=== PATIENT | female | born 1995 | race Caucasian/White ===

== ENCOUNTER 2018-02-12 | Emergency (ER) | payer OTHER, SELFPAY ==
--- NOTE | 2018-02-12 10:47 | ER ---
Nurse's Notes [facility] Name: Jennifer Mclaughlin Age: 22 yrs Sex: Female : 1995 Arrival Date: 02/12/2018 Time: 10:37 Bed Waiting Private MD: Diagnosis: Unspecified otitis externa, left ear Presentation: 02/12 10:43 Presenting complaint: Patient states: ear pain, drainage and swelling to L ear x 3 ss days. Denies fever. Transition of care: patient was not received from another setting of care. Onset of symptoms was February 09, 2018. Care prior to arrival: None. 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 - Social history:: Smoking status: . Screenin:47 Abuse screen: Denies threats or abuse. Denies injuries from another. Nutritional ss screening: No deficits noted. Tuberculosis screening: Never had TB. Fall Risk None identified. Assessment: 10:47 General: Appears in no apparent distress. comfortable, Behavior is calm, cooperative. ss General: Denies fever, feeling ill. Pain: Complains of pain in left ear Pain currently is 3 out of 10 on a pain scale. Quality of pain is described as aching, Is. Neuro: Level of Consciousness is awake, alert, obeys commands. Cardiovascular: Capillary refill < 3 seconds is brisk in bilateral Patient's skin is warm and dry. Respiratory: Airway is patent Respiratory effort is even, unlabored, Respiratory pattern is regular, symmetrical. GI: Patient currently denies diarrhea, nausea, vomiting. EENT: Oral mucosa is moist. Derm: Skin is intact, is healthy with good turgor, Skin is pink, warm \T\ dry. normal. Vital Signs: 10:45 BP 114 / 56; Pulse 75; Resp 16; Temp 98.4(O); Pulse Ox 98% on R/A; Weight 74.39 kg; ss Height 5 ft. 3 in. (160.02 cm); Pain 3/10; 10:45 Body Mass Index 29.05 (74.39 kg, 160.02 cm) ss ED Course: 10:37 Patient arrived in ED. as 10:44 Triage completed. ss 10:45 Arm band placed on right wrist. ss 10:46 Tressa Flowers FNP-C is [facility]. kb 10:46 Andreas Solares MD is Attending Physician. kb 10:47 Patient has correct armband on for positive identification. Bed in low position. Call ss light in reach. 10:50 No provider procedures requiring assistance completed. Patient did not have IV access ss during this emergency room visit. Administered Medications: No medications were administered Outcome: 10:46 Discharge ordered by . kb 10:50 Discharged to home ambulatory. ss 10:50 Condition: good 10:50 Discharge instructions given to patient, Instructed on discharge instructions, follow up and referral plans. medication usage, Demonstrated understanding of instructions, follow-up care, medications, Prescriptions given X 1. 10:52 Patient left the ED. ss Signatures: Tressa Flowers FNP-C FNP-Cynthia Medrano Shelby, RN RN ss
--- NOTE | 2018-02-12 10:47 | EDPHYS ---
Physician Documentation [facility] Name: Jennifer Mclaughlin Age: 22 yrs Sex: Female : 1995 Arrival Date: 02/12/2018 Time: 10:37 Bed Waiting Private MD: ED Physician Andreas Solares HPI: 02/12 10:55 This 22 yrs old Female presents to ER via Ambulatory with complaints of Ear kb Pain. 10:55 The patient presents with drainage, that is purulent, pain, moderate, tenderness. The kb complaints affect the left ear. Onset: The symptoms/episode began/occurred 3 day(s) ago. Modifying factors: The symptoms are alleviated by nothing, the symptoms are aggravated by pulling on ears. Associated signs and symptoms: The patient has no apparent associated signs or symptoms. Severity of symptoms: At their worst the symptoms were mild moderate in the emergency department the symptoms are unchanged. The patient has not experienced similar symptoms in the past. The patient has not recently seen a physician. 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 - Social history:: Smoking status: . ROS: 10:55 Constitutional: Negative for fever, chills, and weight loss, Cardiovascular: Negative kb for chest pain, palpitations, and edema, Respiratory: Negative for shortness of breath, cough, wheezing, and pleuritic chest pain, Abdomen/GI: Negative for abdominal pain, nausea, vomiting, diarrhea, and constipation, MS/Extremity: Negative for injury and deformity, Skin: Negative for injury, rash, and discoloration, Neuro: Negative for headache, weakness, numbness, tingling, and seizure. 10:55 ENT: Positive for drainage from ear(s), ear pain. Exam: 10:55 Constitutional: This is a well developed, well nourished patient who is awake, alert, kb and in no acute distress. Head/Face: Normocephalic, atraumatic. Chest/axilla: Normal chest wall appearance and motion. Nontender with no deformity. No lesions are appreciated. Cardiovascular: Regular rate and rhythm with a normal S1 and S2. No gallops, murmurs, or rubs. Normal PMI, no JVD. No pulse deficits. Respiratory: Lungs have equal breath sounds bilaterally, clear to auscultation and percussion. No rales, rhonchi or wheezes noted. No increased work of breathing, no retractions or nasal flaring. Abdomen/GI: Soft, non-tender, with normal bowel sounds. No distension or tympany. No guarding or rebound. No evidence of tenderness throughout. Skin: Warm, dry with normal turgor. Normal color with no rashes, no lesions, and no evidence of cellulitis. MS/ Extremity: Pulses equal, no cyanosis. Neurovascular intact. Full, normal range of motion. Neuro: Awake and alert, GCS 15, oriented to person, place, time, and situation. Cranial nerves II-XII grossly intact. Motor strength 5/5 in all extremities. Sensory grossly intact. Cerebellar exam normal. Normal gait. 10:55 ENT: External ear(s): are unremarkable, Ear canal(s): purulent discharge, that is minimal, in the left canal, swelling, that is moderate, of the left canal, TM's: are normal, Nose: is normal, Mouth: is normal, Posterior pharynx: is normal. Vital Signs: 10:45 BP 114 / 56; Pulse 75; Resp 16; Temp 98.4(O); Pulse Ox 98% on R/A; Weight 74.39 kg; ss Height 5 ft. 3 in. (160.02 cm); Pain 3/10; 10:45 Body Mass Index 29.05 (74.39 kg, 160.02 cm) ss MDM: 10:46 Patient medically screened. kb 10:55 Data reviewed: vital signs, nurses notes. Data interpreted: Pulse oximetry: on room air kb is 98 %. Interpretation: normal. Counseling: I had a detailed discussion with the patient and/or guardian regarding: the historical points, exam findings, and any diagnostic results supporting the discharge/admit diagnosis, the need for outpatient follow up, a family practitioner. Administered Medications: No medications were administered Disposition: 14:43 Co-signature as Attending Physician, Adnreas Solares MD. Disposition: 02/12/18 10:46 Discharged to Home. Impression: Unspecified otitis externa, left ear. - Condition is Stable. - Discharge Instructions: Otitis Externa, [id number], Ear Drops, Adult, [id number]. - Prescriptions for Cortisporin 3.5- 10,000-1 mg/mL-unit/mL-% Otic solution - instill 4 drop by OTIC route 4 times per day for 7 days; 1 bottle. - Medication Reconciliation Form, Thank You Letter, Antibiotic Education, Prescription Opioid Use form. - Follow up: Emergency Department; When: As needed; Reason: Worsening of condition. Follow up: Private Physician; When: 2 - 3 days; Reason: Recheck today's complaints, Continuance of care, Re-evaluation by your physician. Signatures: Tressa Flowers, DENG SHORT-Charu Barger, GUI RN ss Andreas Solares MD MD
== END 2018-02-12 10:52 | disposition home or self-care (01) ==
CPT/HCPCS: 99282

== ENCOUNTER 2018-08-31 21:26 | Emergency (ER) | payer SELFPAY ==
--- NOTE | 2018-08-31 22:38 | EDPHYS ---
Physician Documentation [facility] Name: Jennifer Mclaughlin Age: 23 yrs Sex: Female : 1995 Arrival Date: 08/31/2018 Time: 21:27 Bed 7 Private MD: ED Physician Andreas Solares HPI: 08/31 22:44 This 23 yrs old Female presents to ER via Ambulatory with complaints of Ear gs Pain, Boil. 22:44 This 23 yrs old Female presents to ER via Ambulatory with complaints of Ear gs Pain, Boil. 22:44 The patient presents with pain. The complaints affect the left ear. Onset: The gs symptoms/episode began/occurred 2 day(s) ago. Modifying factors: the symptoms are aggravated by touching. Associated signs and symptoms: Pertinent negatives: fever. Severity of symptoms: At their worst the symptoms were moderate in the emergency department the symptoms are unchanged. The patient has experienced similar episodes in the past, a few times. 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 - Social history:: Smoking status: Patient uses tobacco products, smokes one-half pack cigarettes per day, Patient uses alcohol, occasionally. Patient/guardian denies using street drugs. - Ebola Screening: : Patient negative for fever greater than or equal to 101.5 degrees Fahrenheit, and additional compatible Ebola Virus Disease symptoms Patient denies exposure to infectious person Patient denies travel to an Ebola-affected area in the 21 days before illness onset. ROS: 22:44 Skin: Positive for abscess, lower right buttock. gs 22:44 All other systems are negative. Exam: 22:44 Head/Face: Normocephalic, atraumatic. Eyes: Pupils equal round and reactive to light, gs extra-ocular motions intact. Lids and lashes normal. Conjunctiva and sclera are non-icteric and not injected. Cornea within normal limits. Periorbital areas with no swelling, redness, or edema. Neck: Trachea midline, no thyromegaly or masses palpated, and no cervical lymphadenopathy. Supple, full range of motion without nuchal rigidity, or vertebral point tenderness. No Meningismus. Chest/axilla: Normal chest wall appearance and motion. Nontender with no deformity. No lesions are appreciated. Cardiovascular: Regular rate and rhythm with a normal S1 and S2. No gallops, murmurs, or rubs. Normal PMI, no JVD. No pulse deficits. Respiratory: Lungs have equal breath sounds bilaterally, clear to auscultation and percussion. No rales, rhonchi or wheezes noted. No increased work of breathing, no retractions or nasal flaring. Abdomen/GI: Soft, non-tender, with normal bowel sounds. No distension or tympany. No guarding or rebound. No evidence of tenderness throughout. Back: No spinal tenderness. No costovertebral tenderness. Full range of motion. 22:44 MS/ Extremity: Pulses equal, no cyanosis. Neurovascular intact. Full, normal range of motion. Neuro: Awake and alert, GCS 15, oriented to person, place, time, and situation. Cranial nerves II-XII grossly intact. Motor strength 5/5 in all extremities. Sensory grossly intact. Cerebellar exam normal. Normal gait. 22:44 Constitutional: The patient appears alert, awake. 22:44 ENT: Ear canal(s): purulent discharge, that is minimal, in the left canal, swelling, of the left canal. 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 Vital Signs: 21:30 BP 114 / 78; Pulse 82; Resp 18; Temp 98.7(O); Pulse Ox 98% on R/A; Weight 75.3 kg (R); fc Height 5 ft. 3 in. (160.02 cm) (R); Pain 10/10; 22:26 BP 112 / 93; Pulse 78; Resp 18; Pulse Ox 100% on R/A; ak1 21:30 Body Mass Index 29.41 (75.30 kg, 160.02 cm) MDM: 22:17 Patient medically screened. 22:44 Differential diagnosis: otitis externa, buttock abscess. Data reviewed: vital signs, gs nurses notes. ED course: pt refused i and d wants abx and referral to surgery. Administered Medications: No medications were administered Disposition: 08/31/18 22:38 Discharged to Home. Impression: Acute actinic otitis externa, left ear, Cutaneous abscess of buttock. - Condition is Stable. - Discharge Instructions: Skin Abscess, Ear Drops, Adult. - Prescriptions for Ciprodex 0.3- 0.1 % Otic Drops, Suspension - instill 4 drop by OTIC route every 12 hours for 7 days , for ears ONLY; 1 Container. Doxycycline Hyclate 100 mg Oral Tablet - take 1 tablet by ORAL route every 12 hours; 20 tablet. - Medication Reconciliation Form, Thank You Letter, Antibiotic Education, Prescription Opioid Use form. - Follow up: Tk Kellogg MD; When: 2 - 3 days; Reason: Re-evaluation by your physician. Signatures: Judy Mejia RN RN Arpita Reza RN RN ak1 Andreas Solares MD MD gs Corrections: (The following items were deleted from the chart) 22:51 22:38 08/31/2018 22:38 Discharged to Home. Impression: Acute actinic otitis externa, ak1 left ear; Cutaneous abscess of buttock. Condition is Stable. Forms are Medication Reconciliation Form, Thank You Letter, Antibiotic Education, Prescription Opioid Use. Follow up: Tk Kellogg; When: 2 - 3 days; Reason: Re-evaluation by your physician. gs
--- NOTE | 2018-08-31 22:38 | ER ---
Nurse's Notes [facility] Name: Jennifer Mclaughlin Age: 23 yrs Sex: Female : 1995 Arrival Date: 08/31/2018 Time: 21:27 Bed 7 Private MD: Diagnosis: Acute actinic otitis externa, left ear;Cutaneous abscess of buttock Presentation: 08/31 21:30 Presenting complaint: Patient states: that she has pain to her left ear and a boil to fc her inner right butt cheek. Both started on Friday am. Transition of care: patient was not received from another setting of care. Onset of symptoms was August 30, 2018. Risk Assessment: Do you want to hurt yourself or someone else? Patient reports no desire to harm self or others. Initial Sepsis Screen: Does the patient meet any 2 criteria? No. Patient's initial sepsis screen is negative. Does the patient have a suspected source of infection? No. Patient's initial sepsis screen is negative. Care prior to arrival: None. 21:30 Method Of Arrival: Ambulatory 21:30 Acuity: ALINE 3 Triage Assessment: 22:22 General: Appears in no apparent distress. Behavior is calm, cooperative. Pain: ak1 Complains of pain in left ear. EENT: Reports pain in left ear. Neuro: No deficits noted. Cardiovascular: No deficits noted. Respiratory: No deficits noted. GI: No signs and/or symptoms were reported involving the gastrointestinal system. : No signs and/or symptoms were reported regarding the genitourinary system. Derm: Reports abscess to inner thigh, buttock area. Musculoskeletal: No signs and/or symptoms reported regarding the musculoskeletal system. 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 - Social history:: Smoking status: Patient uses tobacco products, smokes one-half pack cigarettes per day, Patient uses alcohol, occasionally. Patient/guardian denies using street drugs. - Ebola Screening: : Patient negative for fever greater than or equal to 101.5 degrees Fahrenheit, and additional compatible Ebola Virus Disease symptoms Patient denies exposure to infectious person Patient denies travel to an Ebola-affected area in the 21 days before illness onset. Screenin:51 Abuse screen: Denies threats or abuse. Nutritional screening: No deficits noted. Tuberculosis screening: No symptoms or risk factors identified. Fall Risk None identified. Assessment: 22:23 Reassessment: Patient appears in no apparent distress at this time. No changes from ak1 previously documented assessment. see triage assessment. Vital Signs: 21:30 BP 114 / 78; Pulse 82; Resp 18; Temp 98.7(O); Pulse Ox 98% on R/A; Weight 75.3 kg (R); fc Height 5 ft. 3 in. (160.02 cm) (R); Pain 10/10; 22:26 BP 112 / 93; Pulse 78; Resp 18; Pulse Ox 100% on R/A; ak1 21:30 Body Mass Index 29.41 (75.30 kg, 160.02 cm) ED Course: 21:27 Patient arrived in ED. as 21:30 Arm band placed on Patient placed in an exam room, on a stretcher. fc 21:35 Arpita Reza, RN is Primary Nurse. ak1 21:50 Triage completed. 21:51 Patient has correct armband on for positive identification. Placed in gown. Bed in low fc position. Call light in reach. 21:54 Andreas Solares MD is Attending Physician. gs 22:37 Tk Kellogg MD is Referral Physician. gs 22:38 chaperoned visual exam of abscess to right buttock. pt refused I\T\D. Patient did not ak1 have IV access during this emergency room visit. Administered Medications: No medications were administered Outcome: 22:38 Discharge ordered by . gs 22:39 Condition: stable ak1 22:50 Discharged to home ambulatory. ak1 22:50 Discharge instructions given to patient, Instructed on discharge instructions, follow up and referral plans. no drinking with medication, no driving heavy equipment, medication usage, safe sex practices, control, wound care, Demonstrated understanding of instructions, follow-up care, medications, wound care, Prescriptions given X 2. 22:51 Patient left the ED. ak1 Signatures: Judy Mejia RN RN Cynthia Kellogg Amber, RN RN ak Andreas Solares MD MD gs
== END 2018-08-31 22:51 | disposition home or self-care (01) ==
LOC: ER 21:26
DX: H60.512 Acute actinic otitis externa, left ear (principal); L02.31 Cutaneous abscess of buttock; F17.210 Nicotine dependence, cigarettes, uncomplicated; Z91.048 Other nonmedicinal substance allergy status
CPT/HCPCS: 99282

== ENCOUNTER 2019-01-11 01:50 | Emergency (ER) | payer SELFPAY ==
[2019-01-11 02:42] LABS: Urine Blood TRACE (NEG); Urine Glucose NEGATIVE (NEG); Urine Protein NEGATIVE (NEG); Urine pH 5.5 (5.0-7.0)
[2019-01-11 03:05] LABS: Urine Bacteria <20 /HPF (<20); Urine Culture Reflex Order NOT NEEDED; Urine RBC <5 /HPF (NONE SEEN)
[2019-01-11] MEDS ORDERED: KETOROLAC 30 MG/ML INJ ONE (03:25)
--- NOTE | 2019-01-11 03:25 | ER ---
Nurse's Notes [facility] Name: Jennifer Mclaughlin Age: 23 yrs Sex: Female : 1995 Arrival Date: 01/11/2019 Time: 01:56 Bed 20 Private MD: Diagnosis: Pelvic pressure Presentation: 01/11 02:09 Presenting complaint: Patient states: she is having vaginal discomfort which started bb today last week she had an episode where she had discharge similar to a "booger". Transition of care: patient was not received from another setting of care. Onset of symptoms was January 11, 2019. Risk Assessment: Do you want to hurt yourself or someone else? Patient reports no desire to harm self or others. Initial Sepsis Screen: Does the patient meet any 2 criteria? No. Patient's initial sepsis screen is negative. Does the patient have a suspected source of infection? No. Patient's initial sepsis screen is negative. Care prior to arrival: None. 02:09 Method Of Arrival: Ambulatory bb 02:09 Acuity: ALINE 4 bb Triage Assessment: 02:30 General: Appears in no apparent distress. comfortable, Behavior is calm, cooperative, cc3 appropriate for age. Pain: Complains of pain in vagina. EENT: No signs and/or symptoms were reported regarding the EENT system. Neuro: Level of Consciousness is awake, alert, obeys commands, Oriented to person, place, time, situation, Appropriate for age. Cardiovascular: Patient's skin is warm and dry. Respiratory: Airway is patent Respiratory effort is even, unlabored, Respiratory pattern is regular, symmetrical. GI: Abdomen is flat, non-distended. : No signs and/or symptoms were reported regarding the genitourinary system. Derm: No signs and/or symptoms reported regarding the dermatologic system. Musculoskeletal: Circulation, motion, and sensation intact. Range of motion: intact in all extremities. 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 - Social history:: Smoking status: Patient uses tobacco products, smokes one-half pack cigarettes per day, Patient uses alcohol, occasionally. Patient/guardian denies using street drugs. - Ebola Screening: : No symptoms or risks identified at this time. Screenin:29 Abuse screen: Denies threats or abuse. Denies injuries from another. Nutritional cc3 screening: No deficits noted. Tuberculosis screening: No symptoms or risk factors identified. Fall Risk Ambulatory Aid- None/Bed Rest/Nurse Assist (0 pts). Gait- Normal/Bed Rest/Wheelchair (0 pts) Mental Status- Oriented to own ability (0 pts). Assessment: 02:30 General: see triage assessment. cc3 03:18 Reassessment: Patient appears in no apparent distress at this time. Patient and/or cc3 family updated on plan of care and expected duration. Pain level reassessed. Patient is alert, oriented x 3, equal unlabored respirations, skin warm/dry/pink. 03:50 Reassessment: Patient appears in no apparent distress at this time. Patient and/or cc3 family updated on plan of care and expected duration. Pain level reassessed. Patient is alert, oriented x 3, equal unlabored respirations, skin warm/dry/pink. 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 Vital Signs: 02:12 BP 119 / 60; Pulse 84; Resp 16 S; Temp 98.3(O); Pulse Ox 99% on R/A; Weight 72.57 kg bb (R); Height 5 ft. 3 in. (160.02 cm) (R); Pain 4/10; 03:18 BP 114 / 67; Pulse 86; Resp 17 S; Pulse Ox 99% on R/A; cc3 02:12 Body Mass Index 28.34 (72.57 kg, 160.02 cm) ED Course: 01:56 Patient arrived in ED. es 02:01 [facility]ibel Villasenor [facility]C [facility]. snw 02:01 Regis Coreas MD is Attending Physician. snw 02:11 Triage completed. bb 02:12 Arm band placed on Patient placed in an exam room, on a stretcher, on pulse oximetry. bb 02:29 Addis Meier is Primary Nurse. cc3 02:30 Patient has correct armband on for positive identification. Bed in low position. Call cc3 light in reach. Side rails up X 1. Pulse ox on. NIBP on. 02:30 Straight cath inserted, using sterile technique, 16 Fr. Specimen obtained. Patient bb tolerated well. 03:50 No provider procedures requiring assistance completed. Patient did not have IV access cc3 during this emergency room visit. Administered Medications: 03:15 Drug: TORadol 60 mg Route: IM; Site: left gluteus; cc3 03:50 Follow up: Response: No adverse reaction; Pain is decreased cc3 Outcome: 03:24 Discharge ordered by MD. benjamin 03:50 Discharged to home ambulatory. cc3 03:50 Condition: stable 03:50 Discharge instructions given to patient, Instructed on discharge instructions, follow up and referral plans. medication usage, Demonstrated understanding of instructions, follow-up care, medications, Prescriptions given X 1. 04:02 Patient left the ED. cc3 Signatures: Maribel Villasenor, ASSISTANT SECRETARY-C ASSISTANT SECRETARY-Csnw Giselle Newberry Brenda, GUI RN bb Addis Meier cc3
--- NOTE | 2019-01-11 03:25 | EDPHYS ---
Physician Documentation [facility] Name: Jennifer Mclaughlin Age: 23 yrs Sex: Female : 1995 Arrival Date: 01/11/2019 Time: 01:56 Bed 20 Private MD: ED Physician Regis Coreas HPI: 01/11 02:15 This 23 yrs old Female presents to ER via Ambulatory with complaints of snw VAGINAL DISCOMFORT. 02:15 Onset: The symptoms/episode began/occurred suddenly, and became persistent. Associated snw signs and symptoms: Pertinent positives: dysuria. The patient has experienced a previous episode. The patient has not recently seen a physician. 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 - Social history:: Smoking status: Patient uses tobacco products, smokes one-half pack cigarettes per day, Patient uses alcohol, occasionally. Patient/guardian denies using street drugs. - Ebola Screening: : No symptoms or risks identified at this time. ROS: 02:08 Constitutional: Negative for fever, chills, and weight loss, Eyes: Negative for injury, snw pain, redness, and discharge, ENT: Negative for injury, pain, and discharge, Neck: Negative for injury, pain, and swelling, Cardiovascular: Negative for chest pain, palpitations, and edema, Respiratory: Negative for shortness of breath, cough, wheezing, and pleuritic chest pain, Abdomen/GI: Negative for abdominal pain, nausea, vomiting, diarrhea, and constipation, Back: Negative for injury and pain, MS/Extremity: Negative for injury and deformity, Skin: Negative for injury, rash, and discoloration, Neuro: Negative for headache, weakness, numbness, tingling, and seizure, Psych: Negative for depression, anxiety, suicide ideation, homicidal ideation, and hallucinations. 02:08 : Positive for urinary symptoms, pt states she feels the need to push with urination, noted that 2 weeks prior to her menses she had a large "bugger" discharge. . Exam: 02:13 Constitutional: This is a well developed, well nourished patient who is awake, alert, snw and in no acute distress. Head/Face: Normocephalic, atraumatic. Eyes: Pupils equal round and reactive to light, extra-ocular motions intact. Lids and lashes normal. Conjunctiva and sclera are non-icteric and not injected. Cornea within normal limits. Periorbital areas with no swelling, redness, or edema. ENT: Nares patent. No nasal discharge, no septal abnormalities noted. Tympanic membranes are normal and external auditory canals are clear. Oropharynx with no redness, swelling, or masses, exudates, or evidence of obstruction, uvula midline. Mucous membranes moist. Neck: Trachea midline, no thyromegaly or masses palpated, and no cervical lymphadenopathy. Supple, full range of motion without nuchal rigidity, or vertebral point tenderness. No Meningismus. Chest/axilla: Normal chest wall appearance and motion. Nontender with no deformity. No lesions are appreciated. Cardiovascular: Regular rate and rhythm with a normal S1 and S2. No gallops, murmurs, or rubs. Normal PMI, no JVD. No pulse deficits. Respiratory: Lungs have equal breath sounds bilaterally, clear to auscultation and percussion. No rales, rhonchi or wheezes noted. No increased work of breathing, no retractions or nasal flaring. Abdomen/GI: Soft, non-tender, with normal bowel sounds. No distension or tympany. No guarding or rebound. No evidence of tenderness throughout. Back: No spinal tenderness. No costovertebral tenderness. Full range of motion. Pelvic Exam: Normal external genitalia. Pt on menses, + blood but no noted odor or discharge. will obtain cath urine Skin: Warm, dry with normal turgor. Normal color with no rashes, no lesions, and no evidence of cellulitis. MS/ Extremity: Pulses equal, no cyanosis. Neurovascular intact. Full, normal range of motion. Neuro: Awake and alert, GCS 15, oriented to person, place, time, and situation. Cranial nerves II-XII grossly intact. Motor strength 5/5 in all extremities. Sensory grossly intact. Cerebellar exam normal. Normal gait. Psych: Awake, alert, with orientation to person, place and time. Behavior, mood, and affect are within normal limits. Vital Signs: 02:12 BP 119 / 60; Pulse 84; Resp 16 S; Temp 98.3(O); Pulse Ox 99% on R/A; Weight 72.57 kg bb (R); Height 5 ft. 3 in. (160.02 cm) (R); Pain 4/10; 03:18 BP 114 / 67; Pulse 86; Resp 17 S; Pulse Ox 99% on R/A; cc3 02:12 Body Mass Index 28.34 (72.57 kg, 160.02 cm) bb MDM: 02:01 Patient medically screened. snw 03:26 Data reviewed: vital signs, nurses notes. Data interpreted: Pulse oximetry: on room air snw is 99 %. Interpretation: normal. Counseling: I had a detailed discussion with the patient and/or guardian regarding: the historical points, exam findings, and any diagnostic results supporting the discharge/admit diagnosis, lab results, the need for outpatient follow up, to return to the emergency department if symptoms worsen or persist or if there are any questions or concerns that arise at home. Special discussion: Based on the history and exam findings, there is no indication for further emergent testing or inpatient evaluation. I discussed with the patient/guardian the need to see the OB Gyne specialist for further evaluation of the symptoms. I discussed with the patient/guardian the need to see the primary care provider for further evaluation of the symptoms. ED course: Pt notified of urine GC test. Pt to be called if + and treatment is warranted. She voices understanding of plan of care.. 01/11 02:08 Order name: Urine Culture snw 01/11 02:08 Order name: Urine Microscopic Only; Complete Time: 03:08 snw 01/11 02:37 Order name: GC (Douglas/Chl) Probe URINE EDMS 01/11 02:39 Order name: Urine Dipstick--Ancillary (enter results); Complete Time: 02:54 ar5 01/11 02:08 Order name: Cath; Complete Time: 02:30 snw 01/11 02:08 Order name: Urine Dipstick-Ancillary (obtain specimen); Complete Time: 02:30 snw Administered Medications: 03:15 Drug: TORadol 60 mg Route: IM; Site: left gluteus; cc3 03:50 Follow up: Response: No adverse reaction; Pain is decreased cc3 Disposition: 06:50 Co-signature as Attending Physician, Regis Coreas MD. rn Disposition: 01/11/19 03:24 Discharged to Home. Impression: Pelvic pressure. - Condition is Stable. - Discharge Instructions: Dysuria, Premenstrual Syndrome, Pelvic Rest. - Prescriptions for Diclofenac Sodium 75 mg Oral Tablet Sustained Release - take 1 tablet by ORAL route 2 times per day; 30 tablet. - Work release form, Medication Reconciliation Form, Thank You Letter, Antibiotic Education, Prescription Opioid Use form. - Follow up: Private Physician; When: 2 - 3 days; Reason: Recheck today's complaints, Continuance of care, Re-evaluation by your physician. Follow up: Emergency Department; When: As needed; Reason: Worsening of condition. Signatures: Dispatcher [employer] [facility] Maribel Villasenor, AUTOMOBILE RELOCATION ENGINEER-C AUTOMOBILE RELOCATION ENGINEER-Csnw Samanta Brito, RN Regis Oliver MD MD rn Cordel, Charlene cc3 Corrections: (The following items were deleted from the chart) 03:47 02:40 TEST, SERUM+SC.LAB.BRZ ordered. [facility] 04:02 03:24 01/11/2019 03:24 Discharged to Home. Impression: Pelvic pressure. Condition is cc3 Stable. Forms are Medication Reconciliation Form, Thank You Letter, Antibiotic Education, Prescription Opioid Use. Follow up: Private Physician; When: 2 - 3 days; Reason: Recheck today's complaints, Continuance of care, Re-evaluation by your physician. Follow up: Emergency Department; When: As needed; Reason: Worsening of condition. snw
== END 2019-01-11 04:02 | disposition home or self-care (01) ==
LOC: ER 01:50
DX: N94.89 Other specified conditions associated with female genital organs and menstrual cycle (principal); F17.210 Nicotine dependence, cigarettes, uncomplicated; Q82.8 Other specified congenital malformations of skin; Z88.8 Allergy status to other drugs, medicaments and biological substances
CPT/HCPCS: 51702; 81003; 81015; 87086; 87088; 87490; 87590; 96372; 99284

== ENCOUNTER 2019-04-23 09:45 | Emergency (ER) | payer SELFPAY ==
--- OUTSIDE RECORDS SUMMARY | 2019-04-23 09:46 | XMS REPORT ---
:1995 [facility] Address [address] [place] [address] Care Team Providers Name Role Phone Unavailable Unavailable Unavailable Problems This patient has no known problems. Allergies, Adverse Reactions, Alerts This patient has no known allergies or adverse reactions. Medications This patient has no known medications.
[2019-04-23] MEDS ORDERED: METHYLPREDNISOLONE 125 MG INJ ONE (10:08)
[2019-04-23] MEDS ORDERED: DIPHENHYDRAMINE 50 MG/ML VIAL ONE (10:09)
--- NOTE | 2019-04-23 10:59 | EDPHYS ---
Physician Documentation [facility] Name: Jennifer Mclaughlin Age: 23 yrs Sex: Female : 1995 Arrival Date: 04/23/2019 Time: 09:46 Bed 8 Private MD: ED Physician Regis Coreas HPI: 04/23 10:07 This 23 yrs old Female presents to ER via EMS with complaints of Allergy rn Symptoms. 10:07 The patient's rash thought to be caused by an unknown cause. The rash is located on the rn right leg and left leg. The rash can be described as erythematous, urticarial. Onset: The symptoms/episode began/occurred this morning. Associated signs and symptoms: Pertinent positives: swelling of left eye. Severity of symptoms: At their worst the symptoms were mild in the emergency department the symptoms are unchanged. The patient has not experienced similar symptoms in the past. REports woke up with swelling to left eye and rash to groin/legs, has chronic skin condition including crusty eyes and chronic drainage, but this rash and left eye swelling in new. Had shrimp last night, no new exposures, no new medication. No trouble breathing. No abd pain. Denies trauma.. EXERCISE SPECIALIST: 11:05 LMP N/A - . tw2 Historical: - Allergies: 10:04 Iodine; tw2 - PMHx: 10:04 chlamydia; Darier's Syndrome; Hernia; tw2 - PSHx: 10:04 None; tw2 - Immunization history:: Adult Immunizations. - Social history:: Smoking status: . - Ebola Screening: : Patient negative for fever greater than or equal to 101.5 degrees Fahrenheit, and additional compatible Ebola Virus Disease symptoms Patient denies travel to an Ebola-affected area in the 21 days before illness onset. - Family history:: not pertinent. - Hospitalizations: : No recent hospitalization is reported. ROS: 10:07 Constitutional: Negative for fever, chills, and weight loss, Eyes: + chronic eye rn drainage, + new left periorbital swelling. Cardiovascular: Negative for chest pain, palpitations, and edema, Respiratory: Negative for shortness of breath, cough, wheezing, and pleuritic chest pain, Abdomen/GI: Negative for abdominal pain, nausea, vomiting, diarrhea, and constipation, MS/Extremity: Negative for injury and deformity, Skin: + rash to groin/legs Neuro: Negative for headache, weakness, numbness, tingling, and seizure. Exam: 10:07 Constitutional: This is a well developed, well nourished patient who is awake, alert, rn and in no acute distress. Head/Face: Normocephalic, atraumatic. Eyes: + bilateral crusting of eyelids, no conjunctival erythema, + left edemtous periorbital region without rash. ENT: MMM, no oral swelling. No stridor. Respiratory: No increased work of breathing, no retractions or nasal flaring. Abdomen/GI: soft, non-tender Skin: Warm, dry, erythematous/urticarial lesions to groin and proximal thighs, a few spots on extensor surfaces of arms, no bullae or skin sloughing. MS/ Extremity: Pulses equal, no cyanosis. Neurovascular intact. Full, normal range of motion. Equal circumference. Neuro: Awake and alert, GCS 15, oriented to person, place, time, and situation. Cranial nerves II-XII grossly intact. Motor strength 5/5 in all extremities. Sensory grossly intact. Vital Signs: 09:48 BP 113 / 54; Pulse 78; Resp 18; Temp 97.9; Pulse Ox 99% on R/A; Weight 54.43 kg (R); tw2 Height 5 ft. 4 in. (162.56 cm); Pain 6/10; 09:48 Body Mass Index 20.60 (54.43 kg, 162.56 cm) tw2 MDM: 09:49 Patient medically screened. rn 10:57 Differential diagnosis: allergic reaction. Data reviewed: vital signs, nurses notes, rn and as a result, I will discharge patient. Counseling: I had a detailed discussion with the patient and/or guardian regarding: the historical points, exam findings, and any diagnostic results supporting the discharge/admit diagnosis, the need for outpatient follow up, to return to the emergency department if symptoms worsen or persist or if there are any questions or concerns that arise at home. Response to treatment: the patient's symptoms have mildly improved after treatment, and as a result, I will discharge patient. Special discussion: I discussed with the patient/guardian in detail that at this point there is no indication for admission to the hospital. It is understood, however, that if the symptoms persist or worsen the patient needs to return immediately for re-evaluation. Administered Medications: 10:03 Drug: SOLU-Medrol 125 mg Route: IM; Site: left gluteus; tw2 11:06 Follow up: Response: No adverse reaction tw2 10:05 Drug: Benadryl 50 mg Route: IM; Site: right gluteus; tw2 11:06 Follow up: Response: No adverse reaction tw2 Disposition: 04/23/19 10:58 Discharged to Home. Impression: Acute allergic reaction. - Condition is Stable. - Discharge Instructions: Allergies, Adult. - Prescriptions for Prednisone 20 mg Oral Tablet - take 3 tablet by ORAL route once daily for 5 days; 15 tablet. Erythromycin 5 mg/gram (0.5 %) Ophthalmic Ointment - apply 1 centimeter by OPHTHALMIC route 2-3 times daily for 7 days; 1 tube. - Medication Reconciliation Form, Thank You Letter, Antibiotic Education, Prescription Opioid Use form. - Follow up: Private Physician; When: As needed; Reason: Recheck today's complaints, Re-evaluation by your physician. - Problem is new. - Symptoms have improved. Signatures: Regis Coreas MD MD rn Wise, Tara, RN RN tw2 Corrections: (The following items were deleted from the chart) 11:06 10:58 04/23/2019 10:58 Discharged to Home. Impression: Acute allergic reaction. tw2 Condition is Stable. Forms are Medication Reconciliation Form, Thank You Letter, Antibiotic Education, Prescription Opioid Use. Follow up: Private Physician; When: As needed; Reason: Recheck today's complaints, Re-evaluation by your physician. Problem is new. Symptoms have improved. rn
--- NOTE | 2019-04-23 10:59 | ER ---
Nurse's Notes [facility] Name: Jennifer Mclaughlin Age: 23 yrs Sex: Female : 1995 Arrival Date: 04/23/2019 Time: 09:46 Bed 8 Private MD: Diagnosis: Acute allergic reaction Presentation: 04/23 09:46 Presenting complaint: EMS states: pt woke up this morning and states her eye was tw2 swollen, reports NKA, ate a shrimp dinner last night, vs stable, reports rash on thighs, hx: psoriasis. Transition of care: patient was not received from another setting of care. Onset: The symptoms/episode began/occurred this morning. Anaphylaxis evaluation, the patient reports or I have noted the following symptoms which indicate a significant risk of anaphylaxis: no signs or symptoms of anaphylaxis were noted. Onset of symptoms was April 23, 2019. Risk Assessment: Do you want to hurt yourself or someone else? Patient reports no desire to harm self or others. Initial Sepsis Screen: Does the patient meet any 2 criteria? No. Patient's initial sepsis screen is negative. Does the patient have a suspected source of infection? No. Patient's initial sepsis screen is negative. Care prior to arrival: None. 09:46 Method Of Arrival: EMS: [facility] tw2 09:46 Acuity: ALINE 4 tw2 Triage Assessment: 09:46 General: Appears in no apparent distress. slender, unkempt, Behavior is calm, tw2 cooperative, appropriate for age. Pain: Denies pain. EENT: Reports swelling and discharge from LEFT eye. Neuro: Level of Consciousness is awake, alert, obeys commands, Oriented to person, place, time, situation. Cardiovascular: Heart tones S1 S2 Patient's skin is warm and dry. Respiratory: Airway is patent Respiratory effort is even, unlabored, Respiratory pattern is regular, symmetrical, Breath sounds are clear bilaterally. GI: No signs and/or symptoms were reported involving the gastrointestinal system. : No signs and/or symptoms were reported regarding the genitourinary system. Derm: Reports rash to inner LEFT thigh. Musculoskeletal: Range of motion: intact in all extremities. EXTRUDER: 11:05 LMP N/A - . tw2 Historical: - Allergies: 10:04 Iodine; tw2 - PMHx: 10:04 chlamydia; Darier's Syndrome; Hernia; tw2 - PSHx: 10:04 None; tw2 - Immunization history:: Adult Immunizations. - Social history:: Smoking status: . - Ebola Screening: : Patient negative for fever greater than or equal to 101.5 degrees Fahrenheit, and additional compatible Ebola Virus Disease symptoms Patient denies travel to an Ebola-affected area in the 21 days before illness onset. - Family history:: not pertinent. - Hospitalizations: : No recent hospitalization is reported. Screenin:06 Abuse screen: Denies threats or abuse. Nutritional screening: No deficits noted. tw2 Tuberculosis screening: No symptoms or risk factors identified. Fall Risk None identified. Assessment: 10:05 Reassessment: see triage assessment. tw2 11:05 Reassessment: Patient appears in no apparent distress at this time. Patient and/or tw2 family updated on plan of care and expected duration. Pain level reassessed. Patient is alert, oriented x 3, equal unlabored respirations, skin warm/dry/pink. Patient states symptoms have improved. Vital Signs: 09:48 BP 113 / 54; Pulse 78; Resp 18; Temp 97.9; Pulse Ox 99% on R/A; Weight 54.43 kg (R); tw2 Height 5 ft. 4 in. (162.56 cm); Pain 6/10; 09:48 Body Mass Index 20.60 (54.43 kg, 162.56 cm) tw2 ED Course: 09:46 Patient arrived in ED. tw2 09:46 Arm band placed on. tw2 09:46 Bed in low position. Call light in reach. Pulse ox on. NIBP on. tw2 09:48 Triage completed. tw2 09:49 Regis Coreas MD is Attending Physician. rn 09:51 Pratibha Kay RN is Primary Nurse. tw2 11:03 No provider procedures requiring assistance completed. Patient did not have IV access tw2 during this emergency room visit. Administered Medications: 10:03 Drug: SOLU-Medrol 125 mg Route: IM; Site: left gluteus; tw2 11:06 Follow up: Response: No adverse reaction tw2 10:05 Drug: Benadryl 50 mg Route: IM; Site: right gluteus; tw2 11:06 Follow up: Response: No adverse reaction tw2 Outcome: 10:58 Discharge ordered by . rn 11:03 Discharged to home ambulatory. tw2 11:03 Condition: stable 11:03 Discharge instructions given to patient, Instructed on discharge instructions, follow up and referral plans. Demonstrated understanding of instructions, follow-up care, medications, Prescriptions given X 2. 11:06 Patient left the ED. tw2 Signatures: Regis Coreas MD MD rn Wise, Tara, RN RN tw2 Corrections: (The following items were deleted from the chart) 10:00 09:48 Pulse 78bpm; Resp 18bpm; Pulse Ox 99% RA; Temp 97.9F; 54.43 kg Reported; Height 5 tw2 ft. 4 in.; BMI: 20.6; Pain 6/10; tw2 10:09 09:46 Acuity: ALINE 3 tw2 tw2 10:10 10:09 Acuity: ALINE 4 tw2 tw2
== END 2019-04-23 11:06 | disposition home or self-care (01) ==
LOC: ER 09:45
DX: R21 Rash and other nonspecific skin eruption (principal); T78.40XA Allergy, unspecified, initial encounter
CPT/HCPCS: 96372; 99284; J2930

== ENCOUNTER 2020-08-12 17:30 | Emergency (ER) | payer SELFPAY ==
--- OUTSIDE RECORDS SUMMARY | 2020-08-12 17:32 | XMS REPORT | Continuity of Care Document ---
:1995 Author Organization [facility] t Address [address] [place] [address] Care Team Providers Name Role Phone Jaime Miller Attending Clinician Problems This patient has no known problems. Allergies, Adverse Reactions, Alerts This patient has no known allergies or adverse reactions. Medications This patient has no known medications. Procedures This patient has no known procedures. Encounters Start End Encounter Admission Attending Care Care Encounter Source Date/Time Date/Time Type Type Clinicians Facility Department ID 2020-05-01 2020-05-01 Office TARYN Christianson [id number] 13:21:30 15:26:15 Visit Yara Sandoval GLASS CUTTING MACHINE FEEDER [id number] [facility] [id number] MATERNAL [id number] & CHILD [address] [place] [address] Results This patient has no known results.
--- NOTE | 2020-08-12 19:15 | ER ---
Nurse's Notes [facility] Name: Jennifer Mclaughlin Age: 25 yrs Sex: Female : 1995 Arrival Date: 08/12/2020 Time: 17:38 Bed 5 Private MD: Diagnosis: Psoriasis, unspecified;Acute pharyngitis Presentation: 08/12 17:42 Chief complaint: Patient states: Cough and fatigue for 3 days. No fever. + nausea. ll1 Coronavirus screen: Client denies travel out of the [place] in the last 14 days. cough unrelated to allergies, fatigue, loss of taste or smell, Client presents with at least one sign or symptom that may indicate coronavirus-19. Standard/surgical mask placed on the client. Ebola Screen: Patient denies travel to an Ebola-affected area in the 21 days before illness onset. Initial Sepsis Screen: Does the patient meet any 2 criteria? No. Patient's initial sepsis screen is negative. Risk Assessment: Do you want to hurt yourself or someone else? Patient reports no desire to harm self or others. Onset of symptoms was August 10, 2020. 17:42 Method Of Arrival: Ambulatory ll1 17:42 Acuity: ALINE 3 ll1 Historical: - Allergies: 17:44 Iodine; ll1 - PMHx: 17:44 chlamydia; Hernia; psoriasis; ll1 - PSHx: 17:44 None; ll1 - Immunization history:: Flu vaccine is up to date. - Social history:: Smoking status: Patient reports the use of cigarette tobacco products, smokes one-half pack cigarettes per day. Screenin:30 Abuse screen: Denies threats or abuse. Denies injuries from another. Nutritional hb screening: No deficits noted. Tuberculosis screening: No symptoms or risk factors identified. Fall Risk None identified. Assessment: 18:30 General: Appears in no apparent distress. Behavior is calm, cooperative. Pain: Pain hb currently is 5 out of 10 on a pain scale. Neuro: Level of Consciousness is awake, alert, obeys commands, Oriented to person, place, time, situation. Cardiovascular: Capillary refill < 3 seconds Patient's skin is warm and dry. Respiratory: Reports cough that is Airway is patent Respiratory effort is even, unlabored, Respiratory pattern is regular, symmetrical. GI: No signs and/or symptoms were reported involving the gastrointestinal system. : No signs and/or symptoms were reported regarding the genitourinary system. EENT: No signs and/or symptoms were reported regarding the EENT system. Derm: Skin is pink, warm \\T\\ dry. Musculoskeletal: No signs and/or symptoms reported regarding the musculoskeletal system. Vital Signs: 17:42 BP 113 / 75; Pulse 78; Resp 17; Temp 98.5; Pulse Ox 100% ; Pain 5/10; ll1 ED Course: 17:38 Patient arrived in ED. mr 17:44 Triage completed. ll1 17:45 Arm band placed on. ll1 18:13 Maribel De La Torre FNP-C is PHCP. snw 18:13 Govind Ambrocio MD is Attending Physician. snw 18:30 Patient has correct armband on for positive identification. hb 18:58 Zuleika Joseph, RN is Primary Nurse. hb Administered Medications: No medications were administered Outcome: 19:14 Discharge ordered by MD. snw 19:32 Patient left the ED. Addendum: 08/16/2020 07:38 Addendum: Culture Results: Positive urine culture. Patient was not prescribed s s antibiotics at discharge. Report given to PABLO for further evaluation and then to university relations vice president for follow up with patient. 11:36 Addendum: COVID-19 Result: Positive result giiven to ED physician to notify pt. s s Physician attempted to contact pt. Other: "unable to leave VM" attempted made by Dr. Ambrocio. 13:15 Addendum: Culture Results: Positive urine culture. Phone call Attempt #1 "Not accepting s s calls at this time.". Signatures: Maribel De La Torre FNP-C GRAPHIC EDITOR-Faith Carley PedrazaCharu, RN RN Samantha Garcia RN RN Zuleika Joseph, Torres Sandhu RN, RN RN ll1
--- NOTE | 2020-08-12 19:16 | EDPHYS ---
Physician Documentation [facility] Name: Jennifer Mclaughlin Age: 25 yrs Sex: Female : 1995 Arrival Date: 08/12/2020 Time: 17:38 Bed 5 Private MD: ED Physician Govind Ambrocio HPI: 08/12 19:24 This 25 yrs old Female presents to ER via Ambulatory with complaints of snw Cough, Fatigue. 19:24 The patient or guardian reports cough, described as moderate. Onset: The snw symptoms/episode began/occurred suddenly, 3 day(s) ago. Severity of symptoms: At their worst the symptoms were moderate. Modifying factors: The symptoms are alleviated by nothing. Associated signs and symptoms: The patient has no apparent associated signs or symptoms. It is unknown whether or not the patient has had similar symptoms in the past. The patient has not recently seen a physician. . Historical: - Allergies: 17:44 Iodine; ll1 - PMHx: 17:44 chlamydia; Hernia; psoriasis; ll1 - PSHx: 17:44 None; ll1 - Immunization history:: Flu vaccine is up to date. - Social history:: Smoking status: Patient reports the use of cigarette tobacco products, smokes one-half pack cigarettes per day. ROS: 19:24 Constitutional: Negative for fever, chills, and weight loss, + fatigue and cough Eyes: snw Negative for injury, pain, redness, and discharge, ENT: Negative for injury, pain, and discharge, Neck: Negative for injury, pain, and swelling, Cardiovascular: Negative for chest pain, palpitations, and edema, Abdomen/GI: Negative for abdominal pain, nausea, vomiting, diarrhea, and constipation, Back: Negative for injury and pain, : Negative for injury, bleeding, discharge, and swelling, MS/Extremity: Negative for injury and deformity, Skin: Negative for injury, rash, and discoloration, Neuro: Negative for headache, weakness, numbness, tingling, and seizure. 19:24 Respiratory: Positive for cough. Exam: 19:21 Head/Face: Normocephalic, atraumatic. Eyes: Pupils equal round and reactive to light, snw extra-ocular motions intact. Lids and lashes normal. Conjunctiva and sclera are non-icteric and not injected. Cornea within normal limits. Periorbital areas with no swelling, redness, or edema. Neck: Trachea midline, no thyromegaly or masses palpated, and no cervical lymphadenopathy. Supple, full range of motion without nuchal rigidity, or vertebral point tenderness. No Meningismus. Chest/axilla: Normal chest wall appearance and motion. Nontender with no deformity. No lesions are appreciated. Cardiovascular: Regular rate and rhythm with a normal S1 and S2. No gallops, murmurs, or rubs. Normal PMI, no JVD. No pulse deficits. Respiratory: Lungs have equal breath sounds bilaterally, clear to auscultation and percussion. No rales, rhonchi or wheezes noted. No increased work of breathing, no retractions or nasal flaring. Abdomen/GI: Soft, non-tender, with normal bowel sounds. No distension or tympany. No guarding or rebound. No evidence of tenderness throughout. Back: No spinal tenderness. No costovertebral tenderness. Full range of motion. MS/ Extremity: Pulses equal, no cyanosis. Neurovascular intact. Full, normal range of motion. Neuro: Awake and alert, GCS 15, oriented to person, place, time, and situation. Cranial nerves II-XII grossly intact. Motor strength 5/5 in all extremities. Sensory grossly intact. Cerebellar exam normal. Normal gait. Psych: Awake, alert, with orientation to person, place and time. Behavior, mood, and affect are within normal limits. 19:21 Constitutional: The patient appears alert, awake. 19:21 ENT: External ear(s): are unremarkable, Ear canal(s): psoriasis, Posterior pharynx: erythema, that is moderate, Voice: is normal. 19:21 Skin: Appearance: flaking, plaque, psoriatic skin. Vital Signs: 17:42 BP 113 / 75; Pulse 78; Resp 17; Temp 98.5; Pulse Ox 100% ; Pain 5/10; ll1 MDM: 19:12 Patient medically screened. snw 19:23 Data reviewed: vital signs, nurses notes. Data interpreted: Pulse oximetry: on room air snw is 100 %. Interpretation: normal. Counseling: I had a detailed discussion with the patient and/or guardian regarding: the historical points, exam findings, and any diagnostic results supporting the discharge/admit diagnosis, lab results, the need for outpatient follow up, to return to the emergency department if symptoms worsen or persist or if there are any questions or concerns that arise at home. Special discussion: Based on the history and exam findings, there is no indication for further emergent testing or inpatient evaluation. I discussed with the patient/guardian the need to see the primary care provider for further evaluation of the symptoms. 08/12 18:46 Order name: Urine Culture [facility] 08/12 18:46 Order name: Urine Microscopic Only [facility] 08/12 18:46 Order name: Flu [facility] 08/12 18:46 Order name: COVID-19 [facility] 08/12 19:20 Order name: Urine Dipstick--Ancillary (enter results) [facility] 08/12 19:20 Order name: Urine --Ancillary (enter results) [facility] 08/12 18:46 Order name: Urine Test (obtain specimen); Complete Time: 19:00 [facility] 08/12 18:46 Order name: Urine Dipstick-Ancillary (obtain specimen); Complete Time: 19:00 [facility] 08/12 19:24 Order name: Urine Microscopic Only; Complete Time: 19:25 [facility] 08/12 19:28 Order name: Urine --Ancillary; Complete Time: 19:28 [facility] 08/12 19:28 Order name: Urine Dipstick-Ancillary; Complete Time: 19:28 EDMS Administered Medications: No medications were administered Disposition: 08/13 15:53 Co-signature as Attending Physician, Govind Ambrocio MD I agree with the assessment and kdr plan of care. Disposition: 08/12/20 19:14 Discharged to Home. Impression: Psoriasis, unspecified, Acute pharyngitis. - Condition is Stable. - Discharge Instructions: Pharyngitis, Psoriasis, Rehydration, Adult. - Prescriptions for Tessalon Perles 100 mg Oral Capsule - take 1 capsule by ORAL route every 8 hours As needed; 15 capsule. Prednisone 20 mg Oral Tablet - take 2 tablet by ORAL route once daily for 5 days; 10 tablet. Pepcid 20 mg Oral Tablet - take 1 tablet by ORAL route once daily; 20 tablet. - Work release form, Medication Reconciliation Form, Thank You Letter, Antibiotic Education, Prescription Opioid Use form. - Follow up: Emergency Department; When: As needed; Reason: Worsening of condition. Follow up: Private Physician; When: 2 - 3 days; Reason: Recheck today's complaints, Continuance of care, Re-evaluation by your physician. Signatures: Dispatcher [employer] EDMS Govind Ambrocio MD MD kdr Waters, Shelly, DEJA-Jaime LIBRARY MANAGER-Samantha Dent, RN RN ph Torres Coronado RN RN ll1 Corrections: (The following items were deleted from the chart) 08/12 19:32 19:14 08/12/2020 19:14 Discharged to Home. Impression: Psoriasis, unspecified; Acute ph pharyngitis. Condition is Stable. Forms are Medication Reconciliation Form, Thank You Letter, Antibiotic Education, Prescription Opioid Use. Follow up: Emergency Department; When: As needed; Reason: Worsening of condition. Follow up: Private Physician; When: 2 - 3 days; Reason: Recheck today's complaints, Continuance of care, Re-evaluation by your physician. snw
[2020-08-12 19:23] LABS: Urine Bacteria <20 /HPF (<20); Urine Culture Reflex Order NOT NEEDED; Urine Mucus SLIGHT /HPF (NONE SEEN); Urine RBC <5 /HPF (NONE SEEN)
[2020-08-12 19:27] LABS: Urine Blood NEGATIVE (NEG); Urine Glucose NEGATIVE (NEG); Urine Protein TRACE (NEG); Urine Specific Gravity >1.030 (1.005-1.030); Urine pH 5.5 (5.0-7.0)
[2020-08-12 19:53] VITALS: BP 113/75; TEMP 98.5; O2SAT 100
== END 2020-08-12 19:32 | disposition home or self-care (01) ==
LOC: ER 17:30
DX: U07.1 COVID-19 (principal); J02.9 Acute pharyngitis, unspecified; L40.9 Psoriasis, unspecified; F17.210 Nicotine dependence, cigarettes, uncomplicated; Z91.048 Other nonmedicinal substance allergy status
CPT/HCPCS: 81003; 81015; 81025; 87077; 87086; 87088; 87186; 87804; 99281; U0002

== ENCOUNTER 2020-12-07 07:59 | Emergency (ER) | payer SELFPAY ==
--- OUTSIDE RECORDS SUMMARY | 2020-12-07 08:03 | XMS REPORT | Summary of Care ---
:1995 Author Organization [facility] Address [address] [place] [address] Care Team Providers Name Role Phone Doctor Unassigned, [place] Insurance Hmo Unavailable Jaime Christianson Primary Care Provider Reason for Visit Reason Comments Results Encounter Details Date Type Department Care Team Description 11/15/2020 Telephone [facility]- A Mahendra Ayon, SALES ADMINISTRATION SPECIALIST Results [address] [facility] [address] [place] [address] [place] [address] [phone] Allergies Active Allergy Reactions Severity Noted Date Comments Iodine Rash Medium 02/15/2019 documented as of this encounter (statuses as of 11/15/2020) Medications Medication Sig Dispensed Refills Start Date End Date Status vit Take 1 Packet by 30 Each 6 02/04/2017 Active #[id number] mouth daily. (SELECT-OB + DHA) 29 mg iron-1 mg -250 mg combo pack Levothyroxine 25 mcg Take by mouth. 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 Substance abuse in remission 01/07/2017 ADHD (attention deficit hyperactivity disorder) documented as of this encounter (statuses as of 11/15/2020) Resolved Problems Problem Noted Date Resolved Date Supervision of high risk , antepartum, third 201602/01/2019 trimester Multiparity 03/04/2017 02/01/2019 Supervision of high risk , antepartum, second 03/0406/04/2017 trimester Rubella non-immune status, antepartum 01/09/2017 Tobacco use affecting , antepartum 01/07/2017 02/01/2019 High risk , antepartum 01/07/2017 03/04/20 17 Encounter for routine gynecological examination 03/03/2013 01/07/2017 Overview: ICD10 Diagnosis Term Night Clerk Utility Tobacco use disorder 03/03/2013 01/07/2017 General counseling and advice for contraceptive management 0 03/03/2013 01/07/2017 Overview: ICD10 Diagnosis Term Night Clerk Utility Psoriasis 03/03/2013 01/07/2017 Substance abuse 03/03/2013 01/07/2017 documented as of this encounter (statuses as of 11/15/2020) Immunizations Name Administration Dates Next Due Rubella 03/03/2013 TDAP 06/04/2017, 11/17/2009 documented as of this encounter Social History Tobacco Use Types Packs/Day Years Used Date Current Every Day Smoker Cigarettes 0.3 5 Sta rted: 12/18/2010 Smokeless Tobacco: Never Used Alcohol Use Drinks/Week oz/Week Comments Yes 0 Standard drinks or equivalent 0.0 occasionally on the weekends Sex Assigned at Date Recorded Not on file COVID-19 Exposure Response Date Recorded In the last month, have you been in contact with No / Unsure 10/17/2020 1:29 PM GAMING CAGE CASHIER someone who was confirmed or suspected to have Coronavirus / COVID-19? documented as of this encounter Last Filed Vital Signs Not on filedocumented in this encounter Miscellaneous Notes Telephone Encounter - Sammie Freeman LVN - 11/15/2020 9:48 AM CSTJennifer Mclaughlin is a 25 year old female Patient informed of results for 10/17/2020, verbalized understanding. NG CAGE CASHIER Telephone Encounter - Giselle Patricia - 11/15/2020 9:30 AM Deric Mclaughlin is a 25 year old female Patient requesting results. documented in this encounter Plan of Treatment Date Type Specialty Care Team Description 11/16/2020 Office Visit [facility] Alison Christianson, CNP [address] [place], [place] [address] 12/08/2020 Dairy Nutrition Specialist Visit [facility], [facility] 05/09/2021 Office Visit [facility] Mahendra Estrella, SALES ADMINISTRATION SPECIALIST [address] [place], [place] [address] Health Maintenance Due Date Last Done Comments PNEUMOCOCCAL 0-64 YEARS COMBINED 2001 SERIES (1 of 1 - PPSV23) HPV VACCINES (1 - 2-dose series) 2006 INFLUENZA VACCINE (#1) 2020 Depression Screening 05/01/2021 05/01/2020 PAP SMEAR 05/01/2023 05/01/2020, 05/01/2020, 01/07/2017 DTaP,Tdap,and Td Vaccines (3 - Td) 06/04/2027 06/04/2017, 0 11/17/2009 documented as of this encounter Results Not on filedocumented in this encounter Insurance Payer Benefit Plan Subscriber ID Effective Phone Address Typ e / Group Dates [facility] [id number] 2018-Rory [phone] Medicaid [place]OMEN nt 00 [id number] [place] [address] documented as of this encounter Advance Directives Name Relationship Healthcare Agent Communication Relationship Gem Esparza Other Health Care Agent
--- OUTSIDE RECORDS SUMMARY | 2020-12-07 08:03 | XMS REPORT | Summary of Care ---
:1995 Author Organization [facility] Address [address] [place] [address] Care Team Providers Name Role Phone Doctor Unassigned, [place] Insurance Hmo Unavailable Jaime Christianson Primary Care Provider Reason for Visit Reason Comments STD Encounter Details Date Type Department Care Team Description [facility] High risk heterosexual behavior (Primary Dx); DEJA Norman Sexually transmitted disease (STD) [address] [facility] [address] [place], [place] [phone] Allergies Active Allergy Reactions Severity Noted Date Comments Iodine Rash Medium 02/15/2019 documented as of this encounter (statuses as of 10/17/2020) Medications Medication Sig Dispensed Refills Start Date End Date Status vit Take 1 Packet by 30 Each 6 02/04/2017 Active #[id number]-AP-dha mouth daily. (SELECT-OB + DHA) 29 mg iron-1 mg -250 mg combo pack Levothyroxine 25 mcg Take by mouth. 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 Substance abuse in remission 01/07/2017 ADHD (attention deficit hyperactivity disorder) documented as of this encounter (statuses as of 10/17/2020) Resolved Problems Problem Noted Date Resolved Date Supervision of high risk , antepartum, third 201602/01/2019 trimester Multiparity 03/04/2017 02/01/2019 Supervision of high risk , antepartum, second 03/0406/04/2017 trimester Rubella non-immune status, antepartum 01/09/2017 Tobacco use affecting , antepartum 01/07/2017 02/01/2019 High risk , antepartum 01/07/2017 03/04/20 Encounter for routine gynecological examination 03/03/2013 01/07/2017 Overview: ICD10 Diagnosis Term Upper Cutter Out Utility Tobacco use disorder 03/03/2013 01/07/2017 General counseling and advice for contraceptive management 0 03/03/2013 01/07/2017 Overview: ICD10 Diagnosis Term Upper Cutter Out Utility Psoriasis 03/03/2013 01/07/2017 Substance abuse 03/03/2013 01/07/2017 documented as of this encounter (statuses as of 10/17/2020) Immunizations Name Administration Dates Next Due Rubella [...] with No / Unsure 10/17/2020 1:29 PM INSULATION MANAGER someone who was confirmed or suspected to have Coronavirus / COVID-19? documented as of this encounter Last Filed Vital Signs Vital Sign Reading Time Taken Comments Blood Pressure 112/71 10/17/2020 1:29 PM INSULATION MANAGER Pulse 76 10/17/2020 1:29 PM INSULATION MANAGER Temperature 37.7 C (99.9 F) 10/17/2020 1:29 PM INSULATION MANAGER Respiratory Rate 16 10/17/2020 1:29 PM INSULATION MANAGER Oxygen Saturation - - Inhaled Oxygen Concentration - - Weight 72.8 kg (160 lb 6.4 oz) 10/17/2020 1:29 PM INSULATION MANAGER Height 160 cm (5' 3") 10/17/2020 1:29 PM INSULATION MANAGER Body Mass Index 28.41 10/17/2020 1:29 PM INSULATION MANAGER documented in this encounter Progress Notes Mahendra Estrella, TETRYL BLENDER OPERATOR - 10/17/2020 1:00 PM CST Chief complaint: Chief Complaint Patient presents with STD HPI 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 Patient report she had sex with a condoms however the condom came off. Patient denies no other complaints at this time. Patient had IUD for BCM and desires to continue. Histories OB History Para Term AB Living 2 2 2 2 SAB TAB Ectopic Multiple Live Births 1 # Outcome Date GA Lbr Oenal/2nd Weight Sex Delivery Anes PTL Lv 2 Term 08/14/17 39w0d NORMAL SPONT 1 Term 12/10/15 38w0d 8 lb 3 oz (3.714 kg) F NORMAL SPONT EPI TOSHA Past Medical History: Diagnosis Date ADHD (attention deficit hyperactivity disorder) Resolved per pt report Depression 2019 pt on prn meds, does not know name Endocrine disorder Hypothyroidism 2019 on levothyroxine 25 mcg Irregular menstrual bleeding 08/31/2020 Psoriasis Substance abuse 03/03/2013 Resolved per pt report Family History Problem Relation Age of Onset Asthma Mother Cancer Mother cervical Hypertension Mother Neurological Mother Heart Father No Significant Medical Problems Sister No Significant Medical Problems Brother No Significant Medical Problems Maternal Aunt No Significant Medical Problems Maternal Uncle No Significant Medical Problems Paternal Aunt No Significant Medical Problems Paternal Uncle Diabetes Maternal Grandmother Arthritis NoFHx defects NoFHx Breast Cancer NoFHx Colon Cancer NoFHx Ovarian Cancer NoFHx Uterine Cancer NoFHx Depression NoFHx Genetic NoFHx High cholesterol NoFHx Mental retardation NoFHx Osteoporosis NoFHx Psychiatry NoFHx Family Status Relation Name Status Mo Alive Fa Sis Alive Bro Alive MAunt Alive MUnc Alive PAunt Alive PUnc Alive MGMo MGFa PGMo PGFa NoFHx (Not Specified) No past surgical history on file. Social History Socioeconomic History Marital status: Single Spouse name: Not on file Number of children: Not on file Years of education: Not on file Highest education level: Not on file Occupational History Not on file Social Needs Financial resource strain: Not on file Food insecurity Worry: Not on file Inability: Not on file Transportation needs Medical: Not on file Non-medical: Not on file Tobacco Use Smoking status: Current Every Day Smoker Packs/day: 0.30 Years: 5.00 Pack years: 1.50 Types: Cigarettes Start date: 12/18/2010 Smokeless tobacco: Never Used Substance and Sexual Activity Alcohol use: Yes Alcohol/week: 0.0 standard drinks Comment: occasionally on the weekends Drug use: No Types: Marijuana Comment: 06/21/2013-no longer smokes marijuana Sexual activity: Yes Partners: Male control/protection: I.U.D. Comment: last intercourse 04/28/2020 Lifestyle Physical activity Days per week: Not on file Minutes per session: Not on file Stress: Not on file Relationships Social connections Talks on phone: Not on file Gets together: Not on file Attends worship service: Not on file Active member of club or organization: Not on file Attends meetings of clubs or organizations: Not on file Relationship status: Not on file Intimate partner violence Fear of current or ex partner: Not on file Emotionally abused: Not on file Physically abused: Not on file Forced sexual activity: Not on file Other Topics Concern Not on file Social History Narrative Patient lives at home with brother and kids. Patient denies a worship preference. Patient denies any pets. Social History Substance and Sexual Activity Sexual Activity Yes Partners: Male control/protection: I.U.D. Comment: last intercourse 04/28/2020 Labs Labs are pending. Radiology No new radiology. Allergies Jennifer is allergic to iodine. Medications Jennifer has a current medication list which includes the following prescription(s): levothyroxine and vit 17-[id number]-dha. Review of Systems Constitutional: Negative for activity change, appetite change, fatigue, unexpected weight change, weight gain and weight loss. HENT: Negative for sore throat. Eyes: Negative for visual disturbance. Respiratory: Negative for cough and shortness of breath. Breasts: Negative for discharge, mass, pain and unequal size. Cardiovascular: Negative for chest pain, palpitations and leg swelling. Gastrointestinal: Negative. Negative for abdominal pain, anal bleeding, blood in stool, constipation, diarrhea, nausea, rectal pain and vomiting. Genitourinary: Negative for bladder incontinence, dysuria, urgency, flank pain, vaginal bleeding, vaginal discharge, genital sores, vaginal pain and pelvic pain. Skin: Negative for color change and rash. Neurological: Negative. Negative for dizziness, syncope and headaches. Psychiatric/Behavioral: Negative for confusion, self-injury and sleep disturbance. The patient is not nervous/anxious. Hematological: Negative for cold intolerance and heat intolerance. Endocrine: Negative for hair loss, cold intolerance, heat intolerance, weight gain and weight loss. BP 112/71 (BP Location: Right arm, Patient Position: Sitting, BP CUFF SIZE: Adult Medium) | Pulse 76 | Temp 37.7 C (99.9 F) (Oral) | Resp 16 | Ht 5' 3" (1.6 m) | Wt 160 lb 6.4 oz (72.8 kg) | BMI 28.41 kg/m Pregravid BMI: Could not be calculated Physical Exam Vitals reviewed. Constitutional: She is oriented to person, place, and time. She appears well- developed and well-nourished. Her body habitus is normal. Cardiovascular: Regular rate and rhythm. No peripheral edema present. Pulmonary/Chest: Normal inspiratory effort. Neuro/Psychiatric: Inappropriate mood and affect. She is oriented to person, place, and time. Skin: Skin normal. No lesion, no rash and no ulceration present. Assessment/Plan High risk heterosexual behavior (primary encounter diagnosis) Sexually transmitted disease (STD) Comment: See HPI Plan: GC & CHLAMYDIA AMPLIFIED ASSAY, [facility] ONLY - [facility] IGG/IGM, HIV 1/2 AG-AB WITH REFLEX, GC & CHLAMYDIA AMPLIFIED ASSAY, [facility] ONLY - [facility] IGG/IGM, HIV 1/2 AG-AB WITH REFLEX Safe sex practices dicussed. Return to clinic in 04/2021 for WWE or PRN. Discussed treatment options. Medications as ordered. Reviewed patient instructions and provided printed copy. This visit did not involve counseling and coordination that comprised more than 50% of the visit time. DEJA Franco 10/17/2020 2:07 PM LATION MANAGER documented in this encounter Plan of Treatment Date Type Specialty Care Team Description 12/08/2020 Research Technologist Visit [facility], [facility] 05/09/2021 Office Visit [facility] Mahendra Estrella FNP [address] [place], [place] [address] [phone] Name Type Priority Associated Diagnoses Date/Ti me GC & CHLAMYDIA LAB Routine Sexually transmitted 10/17 1:58 PM INSULATION MANAGER AMPLIFIED ASSAY disease (STD) [facility] ONLY - [facility] LAB Routine Sexually transmitted 10/17/2020 1:58 PM INSULATION MANAGER IGG/IGM disease (STD) HIV 1/2 AG-AB WITH LAB Routine Sexually transmitted 1 12/18/2019 1:58 PM INSULATION MANAGER REFLEX disease (STD) Name Type Priority Associated Diagnoses Order S chedule GC & CHLAMYDIA AMPLIFIED LAB Routine Sexually transmi tted Expected: 10/17/2020, ASSAY disease (STD) Expires: 10/17 [facility] ONLY - [facility] LAB Routine Sexually transmitted Expected: 10/17/2020, IGG/IGM disease (STD) Expires: 10/17 HIV 1/2 AG-AB WITH LAB Routine Sexually transmitted E xpected: 10/17/2020, REFLEX disease (STD) Expires: 10/17 Health Maintenance Due Date Last Done Comments PNEUMOCOCCAL 0-64 YEARS COMBINED 2001 SERIES (1 of 1 - PPSV23) HPV VACCINES (1 - 2-dose series) 2006 INFLUENZA VACCINE (#1) 2020 Depression Screening 05/01/2021 05/01/2020 PAP SMEAR 05/01/2023 05/01/2020, 05/01/2020, 01/07/2017 DTaP,Tdap,and Td Vaccines (3 - Td) 06/04/2027 06/04/2017, 0 11/17/2009 documented as of this encounter Results Not on filedocumented in this encounter Visit Diagnoses Diagnosis High risk heterosexual behavior - Primar y Problems related to high-risk sexual beh avior Sexually transmitted disease (STD) Venereal disease, unspecified documented in this encounter Insurance Payer Benefit Plan Subscriber ID Effective Phone Address Typ e / Group Dates [facility] [id number] 2018-Prese [phone] Medicaid WOMEN nt [address] [address] [place] [address] documented as of this encounter Advance Directives Name Relationship Healthcare Agent Communication Relationship Gem Esparza Other Health Care Agent
--- OUTSIDE RECORDS SUMMARY | 2020-12-07 08:03 | XMS REPORT | Continuity of Care Document ---
:1995 Author Organization [facility] t Address [address] [place] [address] Care Team Providers Name Role Phone Jaime Miller Attending Clinician Problems This patient has no known problems. Allergies, Adverse Reactions, Alerts This patient has no known allergies or adverse reactions. Medications This patient has no known medications. Procedures This patient has no known procedures. Encounters Start End Encounter Admission Attending Care Care Encounter Source Date/Time Date/Time Type Type Clinicians Facility Department ID 2020-11-16 2020-11-16 Office TARYN Christianson [phone] [id number] 15:46:26 16:19:23 Visit Yara Sandoval AMERICAN HISTORY PROFESSOR [id number] [facility] [id number] MATERNAL [id number] & CHILD [address] [place] [address] Results This patient has no known results.
--- OUTSIDE RECORDS SUMMARY | 2020-12-07 08:03 | XMS REPORT | Summary of Care ---
:1995 Author Organization [facility] Address [address] [place] [address] Care Team Providers Name Role Phone Doctor Unassigned, [place] Insurance Hmo Unavailable Jaime Christianson Primary Care Provider Reason for Visit Reason Comments STD Encounter Details Date Type Department Care Team Description [facility] [facility] High risk heterosexual behavior (Primary Dx); DEJA Norman Sexually transmitted disease (STD) 110[address] [facility] [address] [place], [place] [phone] Allergies Active Allergy Reactions Severity Noted Date Comments Iodine Rash Medium 02/15/2019 documented as of this encounter (statuses as of 10/17/2020) Medications Medication Sig Dispensed Refills Start Date End Date Status vit Take 1 Packet by 30 Each 6 02/04/2017 Active #69-lpfp-NB-dha mouth daily. (SELECT-OB + DHA) 29 mg [...] examination 03/03/2013 01/07/2017 Overview: ICD10 Diagnosis Term Check Totaler Utility Tobacco use disorder 03/03/2013 01/07/2017 General counseling and advice for contraceptive management 0 03/03/2013 01/07/2017 Overview: ICD10 Diagnosis Term Check Totaler Utility Psoriasis 03/03/2013 01/07/2017 Substance abuse 03/03/2013 [...] with No / Unsure 10/17/2020 1:29 PM SHELTER ADVOCATE someone who was confirmed or suspected to have Coronavirus / COVID-19? documented as of this encounter Last Filed Vital Signs Vital Sign Reading Time Taken Comments Blood Pressure 112/71 10/17/2020 1:29 PM SHELTER ADVOCATE Pulse 76 10/17/2020 1:29 PM SHELTER ADVOCATE Temperature 37.7 C (99.9 F) 10/17/2020 1:29 PM SHELTER ADVOCATE Respiratory Rate 16 10/17/2020 1:29 PM SHELTER ADVOCATE Oxygen Saturation - - Inhaled Oxygen Concentration - - Weight 72.8 kg (160 lb 6.4 oz) 10/17/2020 1:29 PM SHELTER ADVOCATE Height 160 cm (5' 3") 10/17/2020 1:29 PM SHELTER ADVOCATE Body Mass Index 28.41 10/17/2020 1:29 PM SHELTER ADVOCATE documented in this encounter Progress Notes Mahendra Estrella, CHILD CARE COUNSELOR - 10/17/2020 1:00 PM CST Chief complaint: [...] Births 1 # Outcome Date GA Lbr Oneal/2nd Weight Sex Delivery Anes PTL Lv 2 [...] file Gets together: Not on file Attends alevism service: Not on file Active member of [...] with brother and kids. Patient denies a alevism preference. Patient denies any pets. Social History Substance and Sexual Activity Sexual Activity Yes Partners: Male control/protection: I.U.D. Comment: last intercourse 04/28/2020 Labs Labs are pending. Radiology No new radiology. Allergies Jennifer is allergic to iodine. Medications Jennifer has a current medication list which includes the following prescription(s): levothyroxine and vit 42-qoid-ioxmz-dha. Review of Systems Constitutional: Negative for activity [...] visit time. DEJA Franco 10/17/2020 2:07 [address] ADVOCATE documented in this encounter Plan of Treatment Date Type Specialty Care Team Description 12/08/2020 Special Education Para Professional Visit [facility], [facility] 05/09/2021 Office Visit [facility] Mahendra Estrella FNP [address] [place], [place] [address] [phone] Name Type Priority Associated Diagnoses Date/Ti me GC & CHLAMYDIA LAB Routine Sexually transmitted 10/17 1:58 PM SHELTER ADVOCATE AMPLIFIED ASSAY disease (STD) [facility] ONLY - [facility]IL[facility] LAB Routine Sexually transmitted 10/17/2020 1:58 PM SHELTER ADVOCATE IGG/IGM disease (STD) HIV 1/2 AG-AB WITH LAB Routine Sexually transmitted 1 12/18/2019 1:58 PM SHELTER ADVOCATE REFLEX disease (STD) Name Type Priority Associated [...] Address Typ e / Group Dates [facility] [id number] 2018-Prese [phone] [address] Medicaid WOMEN nt [address] [place] [address] documented as of this encounter Advance Directives Name Relationship Healthcare Agent Communication Relationship Gem Esparza Other Health Care Agent
--- OUTSIDE RECORDS SUMMARY | 2020-12-07 08:04 | XMS REPORT | Summary of Care ---
:1995 Author Organization [facility] Address [address] [place] [address] Care Team Providers Name Role Phone Doctor Unassigned, [place] Insurance Hmo Unavailable Jaime Christianson Primary Care Provider Reason for Visit Reason Comments DRILL PRESS TENDER problem Encounter Details Date Type Department Care Team Description 11/16/2020 Office Visit [facility]- Yara Christianson for other contraceptive management (Primary Dx); CHACHO Pineda IUD (intrauterine device) in place; 110[address] [facility] [address] [facility] [address] Vaginal yeast infection [place], [place] [phone] Allergies Active Allergy Reactions Severity Noted Date Comments Iodine Rash Medium 02/15/2019 documented as of this encounter (statuses as of 11/16/2020) Medications Medication Sig Dispensed Refills Start Date End Date Status vit Take 1 Packet 30 Each 6 02/04/2017 Ac tive #26-qfvh-CZ-dha by mouth daily. (SELECT-OB + DHA) 29 mg iron-1 mg -250 mg combo pack Levothyroxine 25 mcg Take by mouth. 0 Active capsule fluconazole (DIFLUCAN) Take 1 tablet 1 tablet 0 11/16/2020 Active 150 mg by mouth once tabletIndications: now for 1 dose. 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 01/07/2017 ADHD (attention deficit hyperactivity disorder) documented as of this encounter (statuses as of 11/16/2020) Resolved Problems Problem Noted Date Resolved Date Supervision of high risk , antepartum, third 201602/01/2019 trimester Multiparity 03/04/2017 02/01/2019 Supervision of high risk , antepartum, second 03/0406/04/2017 trimester Rubella non-immune status, antepartum 01/09/2017 Tobacco use affecting , antepartum 01/07/2017 02/01/2019 High risk , antepartum 01/07/2017 03/04/20 17 Encounter for routine gynecological examination 03/03/2013 01/07/2017 Overview: ICD10 Diagnosis Term Icu Staff Nurse Utility Tobacco use disorder 03/03/2013 01/07/2017 General counseling and advice for contraceptive management 0 03/03/2013 01/07/2017 Overview: ICD10 Diagnosis Term Icu Staff Nurse Utility Psoriasis 03/03/2013 01/07/2017 Substance abuse 03/03/2013 01/07/2017 documented as of this encounter (statuses as of 11/16/2020) Immunizations Name Administration Dates Next Due Rubella [...] been in contact with No / Unsure 11/16/2020 3:57 PM MAGAZINE WRITER someone who was confirmed or suspected to have Coronavirus / COVID-19? documented as of this encounter Last Filed Vital Signs Vital Sign Reading Time Taken Comments Blood Pressure 95/63 11/16/2020 3:57 PM MAGAZINE WRITER Pulse 74 11/16/2020 3:57 PM MAGAZINE WRITER Temperature 37.3 C (99.2 F) 11/16/2020 3:57 PM MAGAZINE WRITER Respiratory Rate 16 11/16/2020 3:57 PM MAGAZINE WRITER Oxygen Saturation - - Inhaled Oxygen Concentration - - Weight 76.7 kg (169 lb) 11/16/2020 3:57 PM MAGAZINE WRITER Height 160 cm (5' 3") 11/16/2020 3:57 PM MAGAZINE WRITER Body Mass Index 29.94 11/16/2020 3:57 PM MAGAZINE WRITER documented in this encounter Progress Notes Yara Christianson, WHPATRICIAP - 11/16/2020 3:45 PM CST Chief complaint: Chief Complaint Patient presents with DRILL PRESS TENDER problem HPI: the Paitient is here today with complaints of vaginal itching for the past 1 week. She reports she did use monistat 3 day treatment but reports minimal relief. She states that she started her menses on today. She declines having any new sexual partners on today visit and desires sti screening today. Histories OB History Para Term AB Living [...] file Gets together: Not on file Attends anabaptist service: Not on file Active member of [...] with brother and kids. Patient denies a anabaptist preference. Patient denies any pets. Social History Substance and Sexual Activity Sexual Activity Yes Partners: Male control/protection: I.U.D. Comment: last intercourse 04/28/2020 Labs No new labs and Office Visit on 10/17/2020 Component Date Value C. trachomatis Nucleic A* 10/17/2020 Negative N. gonorrhoeae Nucleic A* 10/17/2020 Negative Syphilis IgG/IgM 10/17/2020 Non-reactive HIV 1/2 Ag-Ab with Reflex 10/17/2020 Negative HIV Semi-quantitative 10/17/2020 0.12 Office Visit on 08/31/2020 Component Date Value URINE CULTURE 08/31/2020 > 100,000 CFU/mL mixed aerobic organisms - suggests endogenous microbial contamination C. trachomatis Nucleic A* 08/31/2020 Positive* N. gonorrhoeae Nucleic A* 08/31/2020 Negative Radiology No new radiology. Allergies Jennifer is allergic to iodine. Medications Jennifer has a current medication list which includes the following prescription(s): fluconazole, levothyroxine, and vit 21-vgap-umgct-dha. Review of Systems Constitutional: Negative. HENT: Negative. Eyes: Negative. Respiratory: Negative. Breasts: Negative. Cardiovascular: Negative. Gastrointestinal: Negative. Genitourinary: Positive for vaginal discharge. Musculoskeletal: Negative. Skin: Negative. Neurological: Negative. Psychiatric/Behavioral: Negative. Endocrine: Endocrine negative BP 95/63 (BP Location: Right arm, Patient Position: Sitting, BP CUFF SIZE: Adult Medium) | Pulse 74 | Temp 37.3 C (99.2 F) (Oral) | Resp 16 | Ht 5' 3" (1.6 m) | Wt 169 lb (76.7 kg) | BMI 29.94 kg/m Pregravid BMI: Could not be calculated Physical Exam Vitals reviewed. Constitutional: She is oriented to person, place, and time. She appears well- developed and well-nourished. Her body habitus is normal. Cardiovascular: Regular rate and rhythm. Pulmonary/Chest: Normal inspiratory effort. Neuro/Psychiatric: She has a normal mood and affect. She is oriented to person, place, and time. External genitalia: Normal external genitalia appropriate for age. Normal hair distribution. No labial lesion. Urethral meatus: Normal urethral meatus size, location and no lesion. No prolapse present. Normal urethral meatus Urethra: Normal urethra. No urethral tenderness, no mass and no urethral scarring palpated. Bladder: Bladder has no fullness, no mass palpated and no tenderness. Normal bladder Vagina:No lesion inspected. Normal estrogen effect. Normal support. Vaginal discharge found. No lesions in the vagina. Blood noted in vaginal canal Cervix: Normal cervix. No lesion. No tenderness and no discharge present. Uterus: Uterus is normal size, normal contour, normal position and non-tender. Normal uterus Adnexa: Right adnexa without tenderness, ovary enlargement or mass. Left adnexa without tenderness, ovary enlargement or mass. Normal left adnexa and normal right adnexa Assessment/Plan Return to clinic in 6 months for WWE or sooner as needed Encounter for other contraceptive management (primary encounter diagnosis) IUD (intrauterine device) in place Comment: pleased Plan: as needed mgmt Vaginal yeast infection Comment: reports Plan: fluconazole (DIFLUCAN) 150 mg tablet, GC & CHLAMYDIA AMPLIFIED ASSAY This visit did not involve counseling and coordination that comprised more than 50% of the visit time CHACHO Dobson 11/16/2020 4:19 PM . ZINE WRITER documented in this encounter Plan of Treatment Date Type Specialty Care Team Description 12/08/2020 Academic Support Coordinator [facility] Office Visit [facility] Mahendra Estrella, FAMILY SERVICE CENTER DIRECTOR [address] [place], [place] [address] Name Type Priority Associated Diagnoses Order S chedule GC & CHLAMYDIA AMPLIFIED LAB Routine Vaginal yeast in fection Ordered: 11/16/2020 ASSAY Health Maintenance Due Date Last Done Comments [...] filedocumented in this encounter Visit Diagnoses Diagnosis Encounter for other contraceptive manage ment - Primary IUD (intrauterine device) in place Presence of intrauterine contraceptive d evice Vaginal yeast infection Candidiasis of vulva and vagina documented in this encounter Insurance Payer Benefit Plan Subscriber ID Effective Phone Address Typ e / Group Dates [facility] [id number] 2018-Rory [phone] [address] Medicaid WOMEN nt [address] [place] [address] documented as of this encounter Advance Directives Name Relationship Healthcare Agent Communication Relationship Gem Esparza Other Health Care Agent
--- OUTSIDE RECORDS SUMMARY | 2020-12-07 08:04 | XMS REPORT | Summary of Care ---
:1995 Author Organization [facility] Address [address] [place] [address] Care Team Providers Name Role Phone Doctor Unassigned, [place] Insurance Hmo Unavailable Jaime Christianson Primary Care Provider Reason for Visit Reason Comments FLEXIBLE BABYSITTER problem Encounter Details Date Type Department Care Team Description 11/16/2020 Office Visit [facility]- Yara Christianson for other contraceptive management (Primary Dx); CHACHO Pineda IUD (intrauterine device) in place; [address] [facility] [address] [facility] [address] Vaginal yeast infection [place], [place] [phone] Allergies Active Allergy Reactions Severity Noted Date Comments Iodine Rash Medium 02/15/2019 documented as of this encounter (statuses as of 11/16/2020) Medications Medication Sig Dispensed Refills Start Date End Date Status vit Take 1 Packet 30 Each 6 02/04/2017 Ac tive #26-vziu-UO-dha by mouth daily. (SELECT-OB + DHA) 29 [...] examination 03/03/2013 01/07/2017 Overview: ICD10 Diagnosis Term Balance Wheel Arm Burnisher Utility Tobacco use disorder 03/03/2013 01/07/2017 General counseling and advice for contraceptive management 0 03/03/2013 01/07/2017 Overview: ICD10 Diagnosis Term Balance Wheel Arm Burnisher Utility Psoriasis 03/03/2013 01/07/2017 Substance abuse 03/03/2013 [...] with No / Unsure 11/16/2020 3:57 PM MUSIC VIDEO DIRECTOR someone who was confirmed or suspected to have Coronavirus / COVID-19? documented as of this encounter Last Filed Vital Signs Vital Sign Reading Time Taken Comments Blood Pressure 95/63 11/16/2020 3:57 PM MUSIC VIDEO DIRECTOR Pulse 74 11/16/2020 3:57 PM MUSIC VIDEO DIRECTOR Temperature 37.3 C (99.2 F) 11/16/2020 3:57 PM MUSIC VIDEO DIRECTOR Respiratory Rate 16 11/16/2020 3:57 PM MUSIC VIDEO DIRECTOR Oxygen Saturation - - Inhaled Oxygen Concentration - - Weight 76.7 kg (169 lb) 11/16/2020 3:57 PM MUSIC VIDEO DIRECTOR Height 160 cm (5' 3") 11/16/2020 3:57 PM MUSIC VIDEO DIRECTOR Body Mass Index 29.94 11/16/2020 3:57 PM MUSIC VIDEO DIRECTOR documented in this encounter Progress Notes Yara Christianson, WHPATRICIAP - 11/16/2020 3:45 PM CST Chief complaint: Chief Complaint Patient presents with FLEXIBLE BABYSITTER problem HPI: the Paitient is here today [...] file Gets together: Not on file Attends samaritan service: Not on file Active member of [...] with brother and kids. Patient denies a samaritan preference. Patient denies any pets. Social History [...] the following prescription(s): fluconazole, levothyroxine, and vit 28-lulb-mixgg-dha. Review of Systems Constitutional: Negative. HENT: Negative. [...] time CHACHO Dobson 11/16/2020 4:19 PM . C VIDEO DIRECTOR documented in this encounter Plan of Treatment Date Type Specialty Care Team Description 12/08/2020 Orthopaedic Nurse [facility] Office Visit [facility] Mahendra sEtrella, WELT BEATER [address] [place], [place] [address] Name Type Priority Associated [...] Address Typ e / Group Dates [facility] [id number] 2018-Rory [phone] [address] Medicaid WOMEN nt [address] [place] [address] documented as of this encounter Advance Directives Name Relationship Healthcare Agent Communication Relationship Gem Esparza Other Health Care Agent
--- OUTSIDE RECORDS SUMMARY | 2020-12-07 08:04 | XMS REPORT | Summary of Care ---
:1995 [address] 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 Encounter Details Date Type Department Care Team Description 11/16/2020 Office Visit [facility]- Yara Christianson for other contraceptive management (Primary Dx); CHACHO Pineda IUD (intrauterine device) in place; 110[address] [facility] [address] [facility] [address] Vaginal yeast infection [place], [place] [phone] Allergies Active Allergy Reactions Severity Noted Date Comments Iodine Rash Medium 02/15/2019 documented as of this encounter (statuses as of 11/16/2020) Medications Medication Sig Dispensed Refills Start Date End Date Status vit Take 1 Packet 30 Each 6 02/04/2017 Ac tive #74-eckh-MS-dha by mouth daily. (SELECT-OB + DHA) 29 [...] examination 03/03/2013 01/07/2017 Overview: ICD10 Diagnosis Term Clinical Dietetic Technician Utility Tobacco use disorder 03/03/2013 01/07/2017 General counseling and advice for contraceptive management 0 03/03/2013 01/07/2017 Overview: ICD10 Diagnosis Term Clinical Dietetic Technician Utility Psoriasis 03/03/2013 01/07/2017 Substance abuse 03/03/2013 [...] with No / Unsure 11/16/2020 3:57 PM VASCULAR NEUROLOGIST someone who was confirmed or suspected to have Coronavirus / COVID-19? documented as of this encounter Last Filed Vital Signs Vital Sign Reading Time Taken Comments Blood Pressure 95/63 11/16/2020 3:57 PM VASCULAR NEUROLOGIST Pulse 74 11/16/2020 3:57 PM VASCULAR NEUROLOGIST Temperature 37.3 C (99.2 F) 11/16/2020 3:57 PM VASCULAR NEUROLOGIST Respiratory Rate 16 11/16/2020 3:57 PM VASCULAR NEUROLOGIST Oxygen Saturation - - Inhaled Oxygen Concentration - - Weight 76.7 kg (169 lb) 11/16/2020 3:57 PM VASCULAR NEUROLOGIST Height 160 cm (5' 3") 11/16/2020 3:57 PM VASCULAR NEUROLOGIST Body Mass Index 29.94 11/16/2020 3:57 PM VASCULAR NEUROLOGIST documented in this encounter Progress Notes Yara Christianson, WHPATRICIAP - 11/16/2020 3:45 PM CST Chief complaint: Chief Complaint Patient presents with GOLF TOURNAMENT CONSULTANT problem HPI: the Paitient is here today [...] file Gets together: Not on file Attends yazidism service: Not on file Active member of [...] with brother and kids. Patient denies a yazidism preference. Patient denies any pets. Social History [...] the following prescription(s): fluconazole, levothyroxine, and vit 63-jsoc-wrsev-dha. Review of Systems Constitutional: Negative. HENT: Negative. [...] time CHACHO Dobson 11/16/2020 4:19 PM . ULAR NEUROLOGIST documented in this encounter Plan of Treatment Date Type Specialty Care Team Description 12/08/2020 Paste Maker [facility] Office Visit [facility] Mahendra Estrella, DEJA [address] [place], [place] [address] Name Type Priority Associated Diagnoses Date/Ti me GC & CHLAMYDIA AMPLIFIED LAB Routine Vaginal yeast in fection 11/16/2020 4:23 PM VASCULAR NEUROLOGIST ASSAY Health Maintenance Due Date Last Done [...] Address Typ e / Group Dates [facility] [id number] 2018-Rory [phone] Medicaid WOMEN nt [address] [place] [address] documented as of this encounter Advance Directives Name Relationship Healthcare Agent Communication Relationship Gem Esparza Other Health Care Agent
[2020-12-07] MEDS ORDERED: FLUORESCEIN SODIUM 1 MG/WRAP ONE (08:41)
[2020-12-07] MEDS ORDERED: TETRACAINE HCL 0.5% 4ML OPTH ONE (08:41)
--- NOTE | 2020-12-07 08:43 | ER ---
Nurse's Notes 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 Denies blurred vision. Mild swelling and redness noted to R upper eye lid. Coronavirus screen: Client denies travel out of the [place] in the last 14 days. Ebola Screen: Patient denies exposure to infectious person. Patient denies travel to an Ebola-affected area in the 21 days before illness onset. Mechanism of Injury: SEE TRIAGE NOTE. The patient denies any loss of vision. Initial Sepsis Screen: Does the patient meet any 2 criteria? No. Patient's initial sepsis screen is negative. Does the patient have a suspected source of infection? No. Patient's initial sepsis screen is negative. Risk Assessment: Do you want to hurt yourself or someone else? Patient reports no desire to harm self or others. Onset of symptoms was December 07, 2020. 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 Nutritional screening: No deficits noted. em Tuberculosis screening: No symptoms or risk factors identified. Fall Risk None identified. Assessment: 09:00 General: Appears in no apparent distress. comfortable, Behavior is calm, cooperative, em appropriate for age. Pain: Complains of pain in right eye Pain currently is 6 out of 10 on a pain scale. Neuro: Level of Consciousness is awake, alert, obeys commands, Oriented to person, place, time, situation, Appropriate for age. Cardiovascular: Capillary refill < 3 seconds Patient's skin is warm and dry. Respiratory: Airway is patent Respiratory effort is even, unlabored, Respiratory pattern is regular, symmetrical. EENT: Eyes are tearing on right eye Sclera/Cornea are clear in right eye and left eye. Derm: Skin is intact, is healthy with good turgor, Skin is pink, warm \T\ dry. Musculoskeletal: Capillary refill < 3 seconds, Range of motion: intact in all extremities. Vital Signs: 08:26 BP 130 / 85; Pulse 95; Resp 17; Temp 97.1(TE); Pulse Ox 97% on R/A; Weight 75.75 kg; ss Height 5 ft. 3 in. (160.02 cm); Pain 6/10; 08:26 Body Mass Index 29.58 (75.75 kg, 160.02 cm) ED Course: 08:03 Patient arrived in ED. mr 08:21 Dong Gamboa MD is Attending Physician. tw4 08:29 Triage completed. ss 08:30 Arm band placed on right wrist. 08:42 Micheal Pedraza MD is Referral Physician. tw4 08:49 Toan Segovia RN is Primary Nurse. em 09:00 Patient has correct armband on for positive identification. Bed in low position. Call em light in reach. 09:00 Assist provider with eye exam of right eye. using fluorescein stain, Performed by em Dong Gamboa MD Patient tolerated well. 09:10 Patient did not have IV access during this emergency room visit. em Administered Medications: 09:05 Not Given (Physician Discretion): Gentamicin Ointment 0.3 % 0.5 inches Ophthalmic once; em Right Eye 09:05 Drug: Motrin 800 mg Route: PO; em 09:07 Follow up: Response: Medication administered at discharge. em Outcome: 08:42 Discharge ordered by . tw4 09:00 Discharged to home ambulatory. em 09:00 Condition: good 09:00 Discharge instructions given to patient, Instructed on discharge instructions, follow up and referral plans. medication usage, Demonstrated understanding of instructions, follow-up care, medications, Prescriptions given X 1. 09:10 Patient left the ED. em Signatures: Carley Pedraza mr Toan Segovia, RN RN em Charu Pfeiffer RN RN Dong Gamboa MD MD tw4
--- NOTE | 2020-12-07 08:43 | EDPHYS ---
Physician Documentation [facility] Name: Jennifer Mclaughlin Age: 25 yrs Sex: Female : 1995 Arrival Date: 12/07/2020 Time: 08:03 Bed 2 Private MD: ED Physician Dong Gamboa HPI: 12/07 08:34 This 25 yrs old Female presents to ER via Ambulatory with complaints of Eye tw4 Injury. 08:34 The patient sustained contusion. Onset: The symptoms/episode began/occurred just prior tw4 to arrival. Duration: the symptoms are continuous. Aggravated by nothing. Alleviated by nothing. Severity of symptoms: At their worst the symptoms were moderate in the emergency department the symptoms are unchanged. The patient has not experienced similar symptoms in the past. 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 08:34 Eyes: Positive for injury or acute deformity, pain. Exam: 08:34 Constitutional: This is a well developed, well nourished patient who is awake, alert, tw4 and in no acute distress. Head/Face: Normocephalic, atraumatic. 08:34 Eyes: Lids and lashes: edema, of the right eye. Vital Signs: 08:26 BP 130 / 85; Pulse 95; Resp 17; Temp 97.1(TE); Pulse Ox 97% on R/A; Weight 75.75 kg; ss Height 5 ft. 3 in. (160.02 cm); Pain 6/10; 08:26 Body Mass Index 29.58 (75.75 kg, 160.02 cm) MDM: 08:21 Patient medically screened. tw4 14:56 Differential diagnosis: Corneal abrasion of Corneal ulcer of. Data reviewed: vital tw4 signs, nurses notes. Data interpreted: Pulse oximetry: Interpretation: normal. Counseling: I had a detailed discussion with the patient and/or guardian regarding: the historical points, exam findings, and any diagnostic results supporting the discharge/admit diagnosis. Administered Medications: 09:05 Not Given (Physician Discretion): Gentamicin Ointment 0.3 % 0.5 inches Ophthalmic once; em Right Eye 09:05 Drug: Motrin 800 mg Route: PO; em 09:07 Follow up: Response: Medication administered at discharge. em Disposition: 12/07/20 08:42 Discharged to Home. Impression: Contusion of right eyelid and periocular area. - Condition is Stable. - Discharge Instructions: Contusion, Eye Contusion. - Prescriptions for Gentamicin 0.3 % (3 mg/gram) Ophthalmic Ointment - apply 0.5 inch by OPHTHALMIC route 2-3 times daily for 7 days; 3.5 gram. - Work release form, Medication Reconciliation Form, Thank You Letter, Antibiotic Education, Prescription Opioid Use form. - Follow up: Private Physician; When: Upon discharge from the Emergency Department; Reason: Recheck today's complaints, Continuance of care, Re-evaluation by your physician. Follow up: Micheal Pedraza MD; When: Upon discharge from the Emergency Department; Reason: Recheck today's complaints, Continuance of care, Re-evaluation by your physician. Signatures: Toan Segovia RN RN em Smirch, Shelby, RN RN ss Wadley, Terrence, MD MD tw4 Corrections: (The following items were deleted from the chart) 09:10 08:42 12/07/2020 08:42 Discharged to Home. Impression: Contusion of right eyelid and em periocular area. Condition is Stable. Discharge Instructions: Contusion, Eye Contusion. Forms are Medication Reconciliation Form, Thank You Letter, Antibiotic Education, Prescription Opioid Use. Follow up: Private Physician; When: Upon discharge from the Emergency Department; Reason: Recheck today's complaints, Continuance of care, Re-evaluation by your physician. Follow up: Micheal Pedraza; When: Upon discharge from the Emergency Department; Reason: Recheck today's complaints, Continuance of care, Re-evaluation by your physician. tw4
[2020-12-07 09:15] VITALS: BP 130/85; TEMP 97.1; O2SAT 97
[2020-12-07] MEDS ORDERED: IBUPROFEN 400 MG TAB ONE (09:15)
[2020-12-07] MEDS ORDERED: IBUPROFEN 200 MG TAB PO ONE (09:15)
== END 2020-12-07 09:10 | disposition home or self-care (01) ==
LOC: ER 07:59
DX: S00.11XA Contusion of right eyelid and periocular area, initial encounter (principal); W22.8XXA Striking against or struck by other objects, initial encounter; Y93.89 Activity, other specified; Y92.89 Other specified places as the place of occurrence of the external cause; Y99.8 Other external cause status; Z91.048 Other nonmedicinal substance allergy status
CPT/HCPCS: 99283

== ENCOUNTER 2020-12-27 16:38 | Emergency (ER) | payer SELFPAY ==
--- NOTE | 2020-12-27 17:27 | EDPHYS ---
Physician Documentation [facility] Name: Jennifer Mclaughlin Age: 25 yrs Sex: Female : 1995 Arrival Date: 12/27/2020 Time: 16:38 Bed 25 Private MD: ED Physician Govind Ambrocio HPI: 12/27 17:26 This 25 yrs old Female presents to ER via Ambulatory with complaints of Sore kb Throat. 17:26 The patient presents with sore throat. The patient describes throat pain as constant. kb Onset: The symptoms/episode began/occurred this morning. Severity of symptoms: At their worst the symptoms were moderate, in the emergency department the symptoms are unchanged. Modifying factors: The symptoms are alleviated by nothing, the symptoms are aggravated by swallowing, Patient's oral intake status: good. Associated signs and symptoms: Pertinent positives: Sore throat. The patient has not experienced similar symptoms in the past. The patient has not recently seen a physician. 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 - Social history:: Smoking status: Patient reports the use of cigarette tobacco products, smokes one-half pack cigarettes per day. ROS: 17:25 Constitutional: Negative for fever, chills, and weight loss, Cardiovascular: Negative kb for chest pain, palpitations, and edema, Respiratory: Negative for shortness of breath, cough, wheezing, and pleuritic chest pain, Abdomen/GI: Negative for abdominal pain, nausea, vomiting, diarrhea, and constipation, MS/Extremity: Negative for injury and deformity, Skin: Negative for injury, rash, and discoloration, Neuro: Negative for headache, weakness, numbness, tingling, and seizure. 17:25 ENT: Positive for sore throat. Exam: 17:25 Constitutional: This is a well developed, well nourished patient who is awake, alert, kb and in no acute distress. Head/Face: Normocephalic, atraumatic. Chest/axilla: Normal chest wall appearance and motion. Nontender with no deformity. No lesions are appreciated. Cardiovascular: Regular rate and rhythm with a normal S1 and S2. No gallops, murmurs, or rubs. Normal PMI, no JVD. No pulse deficits. Respiratory: Lungs have equal breath sounds bilaterally, clear to auscultation and percussion. No rales, rhonchi or wheezes noted. No increased work of breathing, no retractions or nasal flaring. Abdomen/GI: Soft, non-tender, with normal bowel sounds. No distension or tympany. No guarding or rebound. No evidence of tenderness throughout. Skin: Warm, dry with normal turgor. Normal color with no rashes, no lesions, and no evidence of cellulitis. MS/ Extremity: Pulses equal, no cyanosis. Neurovascular intact. Full, normal range of motion. Neuro: Awake and alert, GCS 15, oriented to person, place, time, and situation. Cranial nerves II-XII grossly intact. Motor strength 5/5 in all extremities. Sensory grossly intact. Cerebellar exam normal. Normal gait. 17:25 ENT: Posterior pharynx: Airway: normal, no evidence of obstruction, Tonsils: bilaterally enlarged, with erythema, with exudate, Uvula: normal, midline, swelling, that is mild, erythema, that is moderate, exudate, that is moderate. Vital Signs: 16:50 BP 115 / 69; Pulse 97; Resp 18; Temp 98.1; Pulse Ox 98% ; Weight 72.57 kg; Height 5 ft. sv 2 in. (157.48 cm); 16:50 Body Mass Index 29.26 (72.57 kg, 157.48 cm) sv MDM: 16:46 Patient medically screened. kb 17:25 Data reviewed: vital signs, nurses notes. Data interpreted: Pulse oximetry: on room air kb is 98 %. Interpretation: normal. Counseling: I had a detailed discussion with the patient and/or guardian regarding: the historical points, exam findings, and any diagnostic results supporting the discharge/admit diagnosis, lab results, the need for outpatient follow up, a family practitioner, to return to the emergency department if symptoms worsen or persist or if there are any questions or concerns that arise at home. 12/27 16:51 Order name: Strep vickey 12/27 16:52 Order name: Group A Streptococcus Rapid Sc; Complete Time: 17:21 EDMS Administered Medications: 17:50 Drug: Bicillin L-A 1.2 million units Route: IM; Site: left ventrogluteal; iw Disposition: 12/28 06:42 Co-signature as Attending Physician, Govind Ambrocio MD I agree with the assessment and kdr plan of care. Disposition: 12/27/20 17:26 Discharged to Home. Impression: Streptococcal pharyngitis. - Condition is Stable. - Discharge Instructions: Strep Throat, [id number]. - Medication Reconciliation Form, Thank You Letter, Antibiotic Education, Prescription Opioid Use form. - Follow up: Emergency Department; When: As needed; Reason: Worsening of condition. Follow up: Private Physician; When: 2 - 3 days; Reason: Recheck today's complaints, Continuance of care, Re-evaluation by your physician. Signatures: Dispatcher [employer] EDTressa Foster, DEJA-Jaime VASQUEZP-Amanda Yao, RN RN Govind Boyd MD MD kdr Paty Wagner RN RN iw Corrections: (The following items were deleted from the chart) 12/27 18:03 17:26 12/27/2020 17:26 Discharged to Home. Impression: Streptococcal pharyngitis. iw Condition is Stable. Forms are Medication Reconciliation Form, Thank You Letter, Antibiotic Education, Prescription Opioid Use. Follow up: Emergency Department; When: As needed; Reason: Worsening of condition. Follow up: Private Physician; When: 2 - 3 days; Reason: Recheck today's complaints, Continuance of care, Re-evaluation by your physician. kb
--- NOTE | 2020-12-27 17:27 | ER ---
Nurse's Notes [facility] Name: Jennifer Mclaughlin Age: 25 yrs Sex: Female : 1995 Arrival Date: 12/27/2020 Time: 16:38 Bed 25 Private MD: Diagnosis: Streptococcal pharyngitis Presentation: 12/27 16:50 Chief complaint: Patient states: sore throat x 1 week. Coronavirus screen: Client sv denies travel out of the [place] in the last 14 days. At this time, the client does not indicate any symptoms associated with coronavirus-19. Ebola Screen: No symptoms or risks identified at this time. Initial Sepsis Screen: Does the patient meet any 2 criteria? HR > 90 bpm. No. Patient's initial sepsis screen is negative. Does the patient have a suspected source of infection? No. Patient's initial sepsis screen is negative. Risk Assessment: Do you want to hurt yourself or someone else? Patient reports no desire to harm self or others. Onset of symptoms was 2020. 16:50 Method Of Arrival: Ambulatory sv 16:50 Acuity: ALINE 4 sv Triage Assessment: 17:20 General: Appears in no apparent distress. Behavior is calm, cooperative. 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 - Social history:: Smoking status: Patient reports the use of cigarette tobacco products, smokes one-half pack cigarettes per day. Screenin:00 Abuse screen: Denies threats or abuse. Denies injuries from another. Nutritional iw screening: No deficits noted. Tuberculosis screening: No symptoms or risk factors identified. Fall Risk None identified. Assessment: 17:20 General: Appears in no apparent distress. comfortable, Behavior is calm, cooperative. iw Pain: Complains of pain in throat. Neuro: Level of Consciousness is awake, alert, obeys commands, Oriented to person, place, time, situation, Moves all extremities. Full function. Respiratory: Airway is patent Respiratory effort is even, unlabored, Breath sounds are clear bilaterally. EENT: Throat is reddened has patchy exudate has enlarged tonsils bilaterally. Vital Signs: 16:50 BP 115 / 69; Pulse 97; Resp 18; Temp 98.1; Pulse Ox 98% ; Weight 72.57 kg; Height 5 ft. sv 2 in. (157.48 cm); 16:50 Body Mass Index 29.26 (72.57 kg, 157.48 cm) sv ED Course: 16:38 Patient arrived in ED. as 16:46 Tressa Flowers FNP-C is [facility]. kb 16:46 Govind Ambrocio MD is Attending Physician. kb 16:51 Triage completed. sv 16:51 Arm band placed on. sv 17:14 Paty Wagner, RN is Primary Nurse. iw 17:20 Patient has correct armband on for positive identification. iw 18:02 No provider procedures requiring assistance completed. Patient did not have IV access iw during this emergency room visit. Administered Medications: 17:50 Drug: Bicillin L-A 1.2 million units Route: IM; Site: left ventrogluteal; iw Outcome: 17:26 Discharge ordered by MD. kb 18:02 Discharged to home ambulatory. iw 18:02 Condition: good 18:02 Discharge instructions given to patient, Instructed on discharge instructions, follow up and referral plans. Demonstrated understanding of instructions, follow-up care. 18:03 Patient left the ED. iw Signatures: Tressa Flowers FNP-C FNP-Ckb Verde, Stephanie, RN RN Cynthia Kellogg as Paty Wagner, GUI MESSER iw
[2020-12-27] MEDS ORDERED: PEN G BENZ LA 1.2MU/2ML SYRINGE IM ONE (18:05)
[2020-12-27 18:07] VITALS: BP 115/69; TEMP 98.1; O2SAT 98
--- OUTSIDE RECORDS SUMMARY | 2020-12-27 20:18 | XMS REPORT | Continuity of Care Document ---
:1995 Author Organization [facility] t Address [address] [place] [address] Care Team Providers Name Role Phone Jaime [...] Department ID 2020-11-16 2020-11-16 Office TARYN Christianson [id number] 15:46:26 16:19:23 Visit Yara Sandoval [facility] AND SCHOOL VISITOR [id number] [facility] [id number] MATERNAL [phone] & CHILD [address] [place] [address] Results This patient has no known results.
== END 2020-12-27 18:03 | disposition home or self-care (01) ==
LOC: ER 16:38
DX: J02.0 Streptococcal pharyngitis (principal); F17.210 Nicotine dependence, cigarettes, uncomplicated; L40.9 Psoriasis, unspecified; E03.9 Hypothyroidism, unspecified; Q82.8 Other specified congenital malformations of skin
CPT/HCPCS: 87081; 96372; 99283; J0561

== ENCOUNTER 2021-11-04 11:59 | Emergency (ER) | payer SELFPAY ==
--- OUTSIDE RECORDS SUMMARY | 2021-11-04 12:03 | XMS REPORT | Continuity of Care Document ---
:1995 Author Organization [facility] t Address [address] [place] [address] Care Team Providers Name Role Phone Jaime NO Primary Care Physician Unavailable Jaime NO Attending Clinician Unavailable Bernard SHORT N Attending Clinician Jaime Miller Attending Clinician Alexei HOFF Attending Clinician Unavailable Payers Payer Name Policy Type Policy Number Effective Date Expiration Date S ource Advance Directives Directive Decision Effective Termination Comments Source Date Date Healthcare Agents on N/A Univ ersity FileNameRelationshipHealthcare [facility] Agent Medical RelationshipCommunicationNatowatonna hospitale [facility] Care [phone] (Mobile) Problems Condition Condition Condition Status Onset Resolution Last Treating Co mments Source Name Details Category Date Date Treatment Clinician Date Encounter Encounter Disease Active Uni vers for for 6-23 ity of [place] [address] [place] [address] other other Branch contracept contracept ravi ravi Vaginal Vaginal Disease Active Univers discharge discharge 6-23 ity of 00:00: [address] BMI BMI Disease Active Univers 27.0-27.9, 27.0-27.9, 6-23 it y of adult adult 00:00: [address] Need for Need for Disease Active Unive rs HPV HPV 6-23 [place]y of vaccinatio [place] [facility] Feeling Feeling Disease Active Univers tired tired 6-23 ity of 00:00: [place] [facility] Irregular Irregular Disease Active 2019-11 Uni vers menstrual menstrual 0-15 ity of bleeding bleeding 00:00: [place] [facility] Acute Acute Disease Active 2019-11 Univers cystitis cystitis 0-15 ity of without without 00:00: [place] hematuria hematuria [facility] Branch Obesity Obesity Disease Active Univers (BMI (BMI 6-15 ity of 30-39.9) 30-39.9) 00:00: [place] [facility] Psoriasifo Psoriasifo Disease Active U nivers rm rm 6-15 ity of dermatitis dermatitis [place] [facility] [place] IUD IUD Disease Active Univers (intrauter (intrauter 02-15 it y of ine ine 00:00: [place] device) in device) in [address] Branch Screening Screening Disease Active Uni vers examinatio examinatio 3-18 it y of n for STD n for STD [place] ([place]ually (sexually 00 [facility] transmitte transmitte Br anch d disease) d disease) Hernia Hernia Disease Active Univers 5- ity of 00:00: [place] [facility] 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 2-21 ity of 00:00: [place] [facility] Substance Substance Disease Active Uni vers abuse in abuse in 2-21 [place] of remission remission [place] ADHD ADHD Disease Active Univers (attention (attention it y of deficit deficit [place] hyperactiv hyperactiv Me dical ity ity Branch disorder) disorder) Allergies, Adverse Reactions, Alerts Allergy Allergy Status Severity Reaction(s) Onset Inactive Treating Comm ents Source Name Type Date Date Clinician Iodine Propensi Active Rash Univers ty to 02-15 ity of adverse 00:00: [place] reaction 00 Medical s to Branch drug IODINE DRUG Active Med Rash Univers INGREDI 02-15 ity of 00:00: [place] [id number] Medical Branch Social History Social Habit Start Date Stop Date Quantity Comments Source History of 2010-12-18 Cigarette Smoker Universi ty of tobacco use 00:00:00 [facility] History SDOH University o f Alcohol Frequency [place] M edical [facility] History [facility] o f Alcohol Std [place] [facility] Drinks Branch History [facility] o f Alcohol Binge [place] [facility] Exposure to Not sure University of SARS-CoV-2 [facility] (event) Branch Alcohol intake 2021-08-28 2021-08-28 0 /d University of 00:00:00 00:00:00 [facility] Tobacco use and 2013-03-03 2013-03-03 Never used Universit y of exposure 00:00:00 00:00:00 [facility] Cigarettes smoked 2013-03-03 2013-03-03 Univers ity of current (pack per 00:00:00 00:00:00 [facility] ) - Reported Branch Cigarette 2013-03-03 2013-03-03 University of pack-years 00:00:00 00:00:00 [facility] Alcohol Comment 2013-03-03 2013-03-03 occasionally on the University of 00:00:00 00:00:00 weekends [facility] Sex Ass[birth year] Universit y of 00:00:00 00:00:00 [facility] Smoking Status Start Date Stop Date Source Current every day smoker 2013-03-03 00:00:00 Uni versity of [facility] Medications Ordered Filled Start Stop Current Ordering Indication Dosage Frequency Signature Comments Components Source Medication Medication Date Date Medication? Clinician (SIG) Name Name fluconazole 2020-11- Yes [id number] 150mg Take 1 Univers (DIFLUCAN) 0-15 10-16 tablet by ity of 150 mg 00:00: 04:59 [place] tablet [place] :00 now for 1 Medical dose. Branch cephALEXin 2020-11- Yes [id number] 500mg Take 1 Univers (KEFLEX) 0-12 10-20 capsule by ity of 500 mg 00:00: 04:59 mouth 4 [place] capsule 00 :00 (four) Medical times Branch daily for 7 days. cephALEXin 2020-11- Yes [id number] 500mg Take 1 Univers (KEFLEX) 0-12 10-20 capsule by ity of 500 mg 00:00: 04:59 mouth 4 [place] capsule 00 :00 (four) Medical times Branch daily for 7 days. multivit Yes Take by Unive rs with 7-27 mouth. ity of calcium,iro 15:19: [place] n,min 31 Medical (WOMEN'S Branch MULTIPLE VITAMINS ORAL) multivit Yes Take by Unive rs with 7-27 mouth. ity of calcium,iro 15:19: [place] n,min 31 Medical (WOMEN'S Branch MULTIPLE VITAMINS ORAL) Immunizations Ordered Filled Immunization Date Status Comments Sourc e Immunization Name Name HPV9 2021-06-12 Completed University of 00:00:00 [facility] HPV9 2021-06-12 Completed University of 00:00:00 [facility] HPV9 2021-05-09 Completed University of 00:00:00 [facility] HPV9 2021-05-09 Completed University of 00:00:00 [facility] TDAP 2017-06-04 Completed University of 00:00:00 [facility] TDAP 2017-06-04 Completed University of 00:00:00 [facility] Rubella 2013-03-03 Completed University of 00:00:00 [facility] Rubella 2013-03-03 Completed University of 00:00:00 [facility] TDAP 2009-11-17 Completed University of 00:00:00 [facility] TDAP 2009-11-17 Completed University of 00:00:00 [facility] Vital Signs Vital Name Observation Time Observation Value Comments Source Diastolic blood 2021-08-28 15:43:00 73 mm[Hg] Unive rsity of pressure [facility] Heart rate 2021-08-28 15:43:00 64 /min [facility] Body temperature 2021-08-28 15:43:00 36.94 Silvina [facility] Respiratory rate 2021-08-28 15:43:00 16 /min [facility] Body height 2021-08-28 15:43:00 160 cm [facility] Body weight 2021-08-28 15:43:00 69.117 kg [facility] BMI 2021-08-28 15:43:00 26.99 kg/m2 [facility] Systolic blood 2021-08-28 15:43:00 114 mm[Hg] [facility] sity of pressure [facility] Procedures This patient has no known procedures. Encounters Start End Encounter Admission Attending Care Care Encounter Source Date/Time Date/Time Type Type Clinicians Facility Department ID 2021-11-13 2021-11-13 Outpatient R AKINSIPE, [facility] [id number] Univers 09:45:00 09:45:00 JAMA [id number] ity o f [facility] 2021-11-12 2021-11-12 Outpatient R [facility] [id number] Univers 14:00:00 14:00:00 [id number] ity [facility] 2021-11-12 2021-11-12 Outpatient R [facility] [id number] Univers [facility] 2021-08-31 [facility] [id number] Univers 00:00:00 00:00:00 Janina Smith [employer] [id number] it y of [facility] [id number] Vic as MATERNAL [id number] Med ical & CHILD [address] [place] [address] 2021-08-28 2021-08-28 [facility] [id number] Univers 10:28:21 11:17:42 Visit Jama Sandoval [employer] [id number] ity [facility] [id number] Vic as MATERNAL [id number] Med ical & CHILD [address] [place] [address] 2021-08-28 2021-08-28 Outpatient R AKINSIPE, [facility] [id number] Univers 10:00:00 10:00:00 JAMA ity o [facility] 2021-08-28 2021-08-28 Outpatient R AKINSIPE, [facility] [id number] Univers 10:00:00 10:00:00 JAMA [id number] ity o [facility] 2021-08-22 2021-08-22 Outpatient R AKINSIPE, [facility] [id number] Univers 08:30:00 08:30:00 JAMA [id number] ity o [facility] 2021-08-22 2021-08-22 Outpatient R AKINSIPE, [facility] [id number] Univers 08:30:00 08:30:00 JAMA ity o [facility] 2021-08-06 2021-08-06 Outpatient R AKINSIPE, [facility] [id number] Univers 10:15:00 10:15:00 JAMA [id number] ity o [facility] 2021-08-06 2021-08-06 Outpatient R AKINSIPE, [facility] [id number] Univers 10:15:00 10:15:00 JAMA ity o [facility] 2021-08-03 2021-08-03 Outpatient AKINSIPE, [facility] [id number] Univers 13:15:00 13:15:00 JAMA [id number] ity o [facility] 2021-08-03 2021-08-03 Outpatient R AKINSIPE, [facility] [id number] Univers 13:15:00 13:15:00 JAMA ity o [facility] 2021-06-12 2021-06-12 Outpatient R [facility] [id number] Univers 14:00:00 14:00:00 [id number] y [facility] 2021-06-12 2021-06-12 Outpatient R [facility] [id number] Univers 14:00:00 14:00:00 [facility] 2021-06-12 2021-06-12 Outpatient R HOFF, [facility] [id number] Univers 11:45:00 11:45:00 YANETHNDA ity o [facility] 2021-05-09 2021-05-09 Outpatient R HOFF, [facility] [id number] Univers 14:45:00 14:45:00 ROSHUNDA [id number] ity o [facility] 2021-05-09 2021-05-09 Outpatient R HOFF, [facility] [id number] Univers 13:00:00 13:00:00 ROSHUNDA ity o [facility] 2021-01-18 2021-01-18 Outpatient R AKINSIPE, [facility] [id number] Univers 08:45:00 08:45:00 JAMA [id number] ity o [facility] 2021-01-18 2021-01-18 Outpatient R AKINSIPE, [facility] [id number] Univers 08:45:00 08:45:00 JAMA ity o f [facility] 2020-12-08 2020-12-08 Outpatient [facility] [id number] Univers 15:15:00 15:15:00 [id number] ity [facility] 2020-12-08 2020-12-08 Outpatient R AKINSIPE, [facility] [id number] Univers 15:15:00 15:15:00 JAMA kiki o f [facility] 2020-11-16 2020-11-16 Office Akinsipe, [facility] [id number] 15:46:26 16:19:23 Visit Jama Sandoval [employer] [id number] [facility] [id number] MATERNAL [id number] & CHILD [address] [place] [address] 2020-11-16 2020-11-16 Outpatient AKINSIPE, [facility] [id number] Univers 15:45:00 15:45:00 JAMA [id number] ity o f [facility] 2020-11-16 2020-11-16 Outpatient R AKINSIPE, [facility] [id number] Univers 15:45:00 15:45:00 JMAA ity o f [facility] 2020-10-17 2020-10-17 Outpatient R HOFF, [facility] [id number] Univers 13:00:00 13:00:00 ANABEL ity o f [facility] 2020-10-17 2020-10-17 Outpatient R HOFF, [facility] [id number] Univers 13:00:00 13:00:00 ANABEL pettyy o f [facility] 2020-09-27 2020-09-27 Outpatient R HOFF, [facility] [id number] Univers 09:15:00 09:15:00 ANABEL [id number] ity o f [facility] 2020-09-27 2020-09-27 Outpatient R HOFF, [facility] [id number] Univers 09:15:00 09:15:00 JOYCEA ity o [facility] 2020-09-08 2020-09-08 Outpatient R AKINSIPE, [facility] [id number] Univers 15:15:00 15:15:00 JAMA [id number] ity o [facility] 2020-09-08 2020-09-08 Outpatient R AKINSIPE, [facility] [id number] Univers 15:15:00 15:15:00 JAMA ity o [facility] 2020-08-31 2020-08-31 Outpatient R AKINSIPE, [facility] [id number] Univers 16:00:00 16:00:00 JAMA [id number] jovannyy o [facility] 2020-08-31 2020-08-31 Outpatient R AKINSIPE, [facility] [id number] Univers 16:00:00 16:00:00 JAMA petty o [facility] 2020-05-01 2020-05-01 Outpatient R AKINSIPE, [facility] [id number] Univers 13:30:00 13:30:00 JAMA [id number] jovannyy o [facility] 2020-05-01 2020-05-01 Outpatient R AKINSIPE, [facility] [id number] Univers 13:30:00 13:30:00 JAMA petty o [facility] 2020-04-27 2020-04-27 Outpatient R [facility] [id number] Univers 10:30:00 10:30:00 [id number] [facility] 2020-04-27 2020-04-27 Outpatient R [facility] [id number] Univers 10:30:00 10:30:00 [facility] Results This patient has no known results.
[2021-11-04] MEDS ORDERED: ACETAMINOPHEN 500 MG TAB ONE (13:19)
[2021-11-04 14:57] LABS: SARS-COV-2 RT PCR POSITIVE (NEGATIVE)
--- NOTE | 2021-11-04 15:05 | EDPHYS ---
Physician Documentation [facility] Name: Jennifer Mclaughlin Age: 26 yrs Sex: Female : 1995 Arrival Date: 11/04/2021 Time: 12:02 Bed 6 Private MD: ED Physician Regis Coreas HPI: 11/04 15:12 This 26 yrs old Female presents to ER via Ambulatory with complaints of Body Aches, kb Chills. 15:12 The patient or guardian reports chills, body aches, headache. Onset: The kb symptoms/episode began/occurred this morning. Severity of symptoms: At their worst the symptoms were mild, moderate, in the emergency department the symptoms are unchanged. Modifying factors: The symptoms are alleviated by nothing, the symptoms are aggravated by nothing. Associated signs and symptoms: The patient has no apparent associated signs or symptoms. The patient has not experienced similar symptoms in the past. The patient has not recently seen a physician. Pt reports body aches, headache and chills that started this morning. STates she was exposed to covid all week. 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 - Social history:: Smoking status: Patient denies any tobacco usage or history of. ROS: 15:08 Respiratory: Negative for shortness of breath, cough, wheezing, and pleuritic chest kb pain. 15:08 Constitutional: Positive for body aches, chills, Negative for fatigue, fever, malaise, poor PO intake, weight loss. 15:08 Neuro: Positive for headache. 15:08 All other systems are negative. Exam: 15:08 Constitutional: This is a well developed, well nourished patient who is awake, alert, kb and in no acute distress. Head/Face: Normocephalic, atraumatic. ENT: Moist Mucous membranes Cardiovascular: Regular rate and rhythm with a normal S1 and S2. No gallops, murmurs, or rubs. No pulse deficits. Respiratory: Respirations even and unlabored. No increased work of breathing. Talking in full sentences Skin: Warm, dry with normal turgor. Normal color. MS/ Extremity: Pulses equal, no cyanosis. Neurovascular intact. Full, normal range of motion. Neuro: Awake and alert, GCS 15, oriented to person, place, time, and situation. Moves all extremities. Normal gait. Psych: Awake, alert, with orientation to person, place and time. Behavior, mood, and affect are within normal limits. Vital Signs: 12:09 BP 116 / 72; Pulse 98; Resp 16; Temp 99.8(TE); Pulse Ox 100% on R/A; Weight 72.57 kg; ss Height 5 ft. 3 in. (160.02 cm); Pain 6/10; 14:41 BP 105 / 72; Pulse 88; Resp 16; Temp 98.8(O); Pulse Ox 100% ; vg1 12:09 Body Mass Index 28.34 (72.57 kg, 160.02 cm) ss MDM: 12:08 Patient medically screened. kb 14:58 Data reviewed: vital signs, nurses notes. Data interpreted: Pulse oximetry: on room air kb is 100 %. Interpretation: normal. Counseling: I had a detailed discussion with the patient and/or guardian regarding: the historical points, exam findings, and any diagnostic results supporting the discharge/admit diagnosis, lab results, the need for outpatient follow up, a family practitioner, to return to the emergency department if symptoms worsen or persist or if there are any questions or concerns that arise at home. 11/04 12:10 Order name: COVID-19/FLU A+B (Document "Date of Onset" if Symptomatic) 11/04 12:11 Order name: COVID-19/FLU A+B; Complete Time: 14:58 EDMS Administered Medications: 13:20 Drug: Tylenol 1000 mg Route: PO; vg1 14:46 Follow up: Response: Temperature is decreased vg1 Disposition: 15:14 Co-signature as Attending Physician, Regis Coreas MD. rn Disposition Summary: 11/04/21 15:04 Discharge Ordered Location: Home Condition: Stable kb Diagnosis - Coronavirus infection, unspecified kb Followup: kb - With: Emergency Department - When: As needed - Reason: Worsening of condition Followup: kb - With: Private Physician - When: 2 - 3 days - Reason: Recheck today's complaints, Continuance of care, Re-evaluation by your physician Discharge Instructions: - Discharge Summary Sheet kb - Viral Respiratory Infection, Ngeh-Ph-Ebil kb - COVID-19 kb Forms: - Medication Reconciliation Form kb - Thank You Letter kb - Antibiotic Education kb - Prescription Opioid Use kb Signatures: Dispatcher [employer] Tressa Reed, DEJA-Jaime SHORT-Regis Parker MD MD rn Smirch, Shelby, RN RN ss Rose Marie Goldstein RN RN vg1 Corrections: (The following items were deleted from the chart) 12:11 12:10 PMHx: chlamydia; [facility]
--- NOTE | 2021-11-04 15:05 | ER ---
Nurse's Notes [facility] Name: Jennifer Mclaughlin Age: 26 yrs Sex: Female : 1995 Arrival Date: 11/04/2021 Time: 12:02 Bed 6 Private MD: Diagnosis: Coronavirus infection, unspecified Presentation: 11/04 12:09 Chief complaint: Patient states: + exposure to covid. Pt reports body aches and not ss feeling well since this am. Coronavirus screen: Client denies travel out of the [place] in the last 14 days. Ebola Screen: Patient denies exposure to infectious person. Patient denies travel to an Ebola-affected area in the 21 days before illness onset. Initial Sepsis Screen: Does the patient meet any 2 criteria? No. Patient's initial sepsis screen is negative. Does the patient have a suspected source of infection? No. Patient's initial sepsis screen is negative. Risk Assessment: Do you want to hurt yourself or someone else? Patient reports no desire to harm self or others. Onset of symptoms was November 04, 2021. 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 - Social history:: Smoking status: Patient denies any tobacco usage or history of. Screenin:38 Abuse screen: Denies threats or abuse. Nutritional screening: No deficits noted. vg1 Tuberculosis screening: No symptoms or risk factors identified. Fall Risk None identified. Assessment: 12:37 General: Appears in no apparent distress. uncomfortable, Behavior is calm, cooperative. vg1 Pain: Complains of pain in head Pain currently is 6 out of 10 on a pain scale. Neuro: Level of Consciousness is awake, alert, obeys commands, Oriented to person, place, time, situation, Reports headache. Cardiovascular: Patient's skin is warm and dry. Respiratory: Airway is patent Respiratory effort is even, unlabored, Denies cough, shortness of breath. GI: Patient currently denies diarrhea, nausea, vomiting. : No signs and/or symptoms were reported regarding the genitourinary system. EENT: No signs and/or symptoms were reported regarding the EENT system. Derm: Skin is intact, is healthy with good turgor. Musculoskeletal: Circulation, motion, and sensation intact. 13:20 Reassessment: Received VO from Lionel SPRAYING MACHINE OPERATOR to administer Tylenol 1 gram PO x1. vg1 14:46 Reassessment: Patient appears in no apparent distress at this time. Patient and/or vg1 family updated on plan of care and expected duration. Pain level reassessed. Patient is alert, oriented x 3, equal unlabored respirations, skin warm/dry/pink. Patient states feeling better. Vital Signs: 12:09 BP 116 / 72; Pulse 98; Resp 16; Temp 99.8(TE); Pulse Ox 100% on R/A; Weight 72.57 kg; ss Height 5 ft. 3 in. (160.02 cm); Pain 6/10; 14:41 BP 105 / 72; Pulse 88; Resp 16; Temp 98.8(O); Pulse Ox 100% ; vg1 12:09 Body Mass Index 28.34 (72.57 kg, 160.02 cm) ED Course: 12:02 Patient arrived in ED. ds1 12:07 Tressa Flowers FNP-C [facility]. kb 12:08 Regis Coreas MD is Attending Physician. kb 12:09 Charu Pfeiffer, GUI is Primary Nurse. ss 12:10 Triage completed. ss 12:10 Arm band placed on right wrist. ss 12:30 COVID swab sent to lab. Flu and/or RSV swab sent to lab. jl7 12:38 Patient has correct armband on for positive identification. Bed in low position. Call vg1 light in reach. 12:38 No provider procedures requiring assistance completed. Patient did not have IV access vg1 during this emergency room visit. Administered Medications: 13:20 Drug: Tylenol 1000 mg Route: PO; vg1 14:46 Follow up: Response: Temperature is decreased vg1 Outcome: 15:04 Discharge ordered by . kb 15:12 Discharged to home ambulatory. jl7 15:12 Condition: stable 15:12 Discharge instructions given to patient, Instructed on discharge instructions, follow up and referral plans. Demonstrated understanding of instructions, follow-up care. 15:13 Patient left the ED. jl7 Signatures: Tressa Flowers FNP-C FNP-Ckb [place], Demi ds1 Charu Pfeiffer RN RN ss Mary Oneill, RN RN jl7 Rose Marie oGldstein RN RN vg1 Corrections: (The following items were deleted from the chart) :11 12:10 PMHx: chlamydia; [facility]
[2021-11-04 15:41] VITALS: O2SAT 100
[2021-11-04 15:42] VITALS: BP 105/72; TEMP 98.8
== END 2021-11-04 15:13 | disposition home or self-care (01) ==
LOC: ER 11:59
DX: U07.1 COVID-19 (principal); Z91.048 Other nonmedicinal substance allergy status
CPT/HCPCS: 0240U; 99283